=== PATIENT | male | born 1965 | race Hispanic/Latino ===

== ENCOUNTER 2019-12-01 15:39 | Inpatient (IN) | payer SELFPAY ==
[~2019-12-01 15:39] MED LIST: Iopamidol-370 76% 500 ML 1 ML ONE
[2019-12-01 16:10] LABS: Hemoglobin 12.5 g/dL (14.0-18.0); Mean Corpuscular HGB CONC 33.1 g/dL (32.0-36.0); Mean Corpuscular Hemoglobin 27.5 pg (27.0-31.0); Mean Corpuscular Volume 83.1 fL (78.0-98.0); Mean Platelet Volume 7.1 fL (7.4-10.4); Platelet Count 453 thou/uL (130-400); RBC Distribution Width 12.3 % (11.5-14.5); Red Blood Cell (RBC) Count 4.54 mill/uL (4.70-6.10); White Blood Cell (WBC) Count 24.3 thou/uL (4.8-10.8)
[2019-12-01] MEDS ORDERED: cefTRIAXone\\ROCEPHIN 2 GM VIAL ONE (16:10)
[2019-12-01 16:11] LABS: Base Excess-Venous -3.4 mmol/L (-2.0 to 3.0); CO2 Tension (PvCO2) 26.4 mmHg (40.0-50.0); Calcium, Ionized 1.22 mmol/L (See Comments:); Chloride 103 mmol/L (98-107); Hemoglobin - Calc 12.7 g/dL (14.0-18.0); Potassium 3.3 mmol/L (3.5-5.1); Sodium 136 mmol/L (138-145); T. Carbon Dioxide 19.8 mmol/L (22.0-28.0); vO2 Saturation-calc 89.4 % (60.0-85.0)
[2019-12-01 16:24] LABS: Band 22 % (5-11); Lymphocytes 2 % (21-51); MDiff Complete? YES; Metamyelocyte 1 % (0-0); Monocytes 1 % (0-10); Neutrophil 74 % (42-75); Ovalocytes SLIGHT = 2-5 cells (100X) (0-1/hpf); Platelet Morphology Comment Appears Increased; Polychromasia SLIGHT = 2-3 cells (100X) (0-2/hpf)
[2019-12-01 16:35] LABS: ALT (SGPT) 19 U/L (8-55); AST (SGOT) 23 U/L (5-34); Albumin 2.8 g/dL (3.5-5.0); Alkaline Phosphatase 98 U/L (40-110); Anion Gap 13 mmol/L (10-20); BUN (Urea Nitrogen) 14 mg/dL (8.4-25.7); Bilirubin, Total 0.9 mg/dL (0.2-1.2); Calc. Creatinine Clearance 0 mL/min (70-130); Carbon Dioxide 18 mmol/L (22-29); Chloride 105 mmol/L (98-107); Estimated GFR-MDRD Greater than 90; Globulin 3.2 g/dL (2.4-3.5); Glucose 139 mg/dL (70-105); Lipase 63 U/L (8-78); Potassium 3.3 mmol/L (3.5-5.1); Sodium 133 mmol/L (136-145)
[2019-12-01] MEDS ORDERED: Azithromycin 500 MG VIAL ONE (16:37)
[2019-12-01 16:40] LABS: Bilirubin Negative (Negative); Blood, Urine Negative (Negative); Clarity Turbid (Clear); Glucose, Urine (Dipstick) 70 mg/dL (Negative); Leukocyte Negative Leu/uL (Negative); Nitrite Negative (Negative); Protein, Urine (Dipstick) 100 mg/dL (Neg-Trace); RBC/HPF 0-3 HPF (0-3); Squamous Epithelial 0-3 HPF (0-3); Urobilinogen Normal mg/dL (Less than 2)
[2019-12-01 16:45] LABS: Bacteria/HPF None Seen HPF (None Seen); Renal Epithelial 0-3 HPF (None Seen); Transitional Epithelial 0-3 HPF (None Seen)
[2019-12-01 16:46] LABS: Mucous/LPF 3+ LPF (<2+)
--- NOTE | 2019-12-01 17:08 | RAD ---
Exam: Chest one view portable: HISTORY: Shortness of breath, diarrhea Fairly extensive confluent alveolar parenchymal change in the left midlung zone and left lower lobe. Additionally there is some confluent parenchymal changes in the right lower lobe and infrahilar region. Heart size is normal. IMPRESSION: Evidence for bilateral pneumonia.
[2019-12-01] MEDS ORDERED: Norepinephrine 8 MG/0.9% NS 250 ML ONE (17:32)
--- NOTE | 2019-12-01 17:50 | CT ---
CT arteriogram chest with IV contrast and 3-D imaging HISTORY: Chest pain. Dyspnea. FINDINGS: There is good contrast opacification pulmonary arteries and thoracic aorta with normal bran sandra of the great vessels at the aortic arch. Mild arterial calcification. Reactive appearing lymph nodes throughout the mediastinum. Dense consolidation and atelectasis occupies most of the left lower lobe, sparing the anterior and la teral basilar segments. Throughout the remainder of the upper lobes, prominent groundglass opacity is present with scattered small cysts. No focal mass is apparent. IMPRESSION: No CT evidence of pulmonary embolus. Dense atelectasis/infiltrate throughout most of the left lower lobe. Cause is not evident. There is also widespread groundglass opacity throughout the remainder of the lungs. Autoimmune versus infectious process. Please consider pulmonary medicine evaluation.
--- NOTE | 2019-12-01 18:21 | RAD ---
Chest one view HISTORY: Central line placement. COMPARISON: Earlier exam on the same date. FINDINGS: Distal end of the right subclavian central venous catheter is directed superiorly over the right internal jugular vein, with the tip at the level of C2. Dense bilateral airspace disease, pulmonary vascular congestion, and other findings of the chest are otherwise stable. IMPRESSION: Right subclavian central venous catheter directed into the right internal jugular vein.:
--- NOTE | 2019-12-01 19:02 | RAD ---
Chest one view HISTORY: Central line readjustment. COMPARISON: Earlier exam on the same date. FINDINGS: Tip of a right internal jugular central venous catheter now projects over the cavoatrial ju nction. Dense bilateral lung infiltrates, pulmonary vascular congestion, and other findings are stable.
[2019-12-01] MEDS ORDERED: Ibuprofen 200 MG TAB PO PRN (21:10)
[2019-12-01] MEDS ORDERED: Acetaminophen 325 MG TAB PO PRN (21:10)
[2019-12-01] MEDS ORDERED: Famotidine 20 MG TAB PO SCH (21:15)
[2019-12-01] MEDS: Sodium Chloride 0.9% 1,000 ML IV SCH (22:28)
[2019-12-02] MEDS ORDERED: Norepinephrine 8 MG/0.9% NS 250 ML IVPB PRN (00:16)
--- NOTE | 2019-12-02 00:28 | HP ---
PRIMARY CARE PHYSICIAN: The patient does not have a primary care physician. CHIEF COMPLAINT: Cough and shortness of breath. HISTORY OF PRESENT ILLNESS: Mr. Martines is a pleasant 54-year-old gentleman, who has no significant past medical history. He says that about a week ago on Tuesday, he started having symptoms of cough and congestion. The cough was productive of a yellowish sputum. He says it was very minimal, however, there was no blood. He also noted some shortness of breath as well. He also has had decreased appetite and he admits to losing about 15 pounds over the past 2 weeks. He denies having any night sweats, however. He denies any sick contacts. He has traveled to [place] about 6 months ago, but says he was not in contact with anybody who had any illnesses that he was aware of. He was evaluated in the ER and found to have bilateral infiltrates, as well as an elevated white blood cell count. He is noted to be febrile and an elevated heart rate, as well as hypotensive and is being admitted for pneumonia with sepsis. REVIEW OF SYSTEMS: All systems were reviewed and are negative except for that mentioned in the history of present illness. PAST MEDICAL HISTORY: Significant for shingles. PAST SURGICAL HISTORY: Negative. ALLERGIES: NO KNOWN DRUG ALLERGIES. SOCIAL HISTORY: He is a nonsmoker and nondrinker. He is , has no children. FAMILY HISTORY: Unknown. MEDICATIONS: No medicines prior to admission. PHYSICAL EXAMINATION: GENERAL: He is alert and oriented. He appears to be in no acute distress. VITAL SIGNS: Blood pressure was 109/70, heart rate 83, heart rate of 141, respiratory rate of 25, and temperature is 100.2. HEENT: Pupils are equal, round, and reactive. Extraocular muscles are intact. Sclerae anicteric. Throat, there is no erythema, no exudates. NECK: No adenopathy, no bruits. LUNGS: He has decreased breath sounds bilaterally, as well as rales throughout. CARDIOVASCULAR: He has a normal S1, S2. There is no S3 or S4. No murmurs, clicks, or rubs. ABDOMEN: Soft. It is nontender and nondistended. Positive for bowel sounds. There is no rebound, no guarding, no organomegaly. EXTREMITIES: There is no clubbing or cyanosis. No edema. No joint effusions. NEUROLOGIC: Grossly nonfocal. SKIN AND INTEGUMENT: No skin changes. No rash. LABORATORY RESULTS: White blood cell count is 24.3, hemoglobin 12.5, hematocrit is 37.7, and platelet count is 453. On the blood gas, pH was 7.465, sodium 136, potassium 3.3, chloride is 103, CO2 is 18, BUN 14, creatinine 0.81, glucose is 139. Urinalysis, he had some granular casts, 0-3 squamous cells. ASSESSMENT: This is a pleasant 54-year-old gentleman, who presents with cough and shortness of breath as well as elevated white blood cell count and radiographic evidence of pneumonia. He will be admitted to the ICU. Given the severe sepsis, started on antibiotics for community-acquired pneumonia. He will have a Pulmonary consultation. We will get fluid resuscitation, check an echo since some of the findings could be compatible with congestive heart failure as well, although less likely. Place him on deep venous thrombosis and gastrointestinal prophylaxis and supplemental oxygen. Further recommendations to follow. Job ID: [id number]
[2019-12-02 04:10] LABS: Anion Gap 11 mmol/L (10-20); BUN (Urea Nitrogen) 12 mg/dL (8.4-25.7); Calc. Creatinine Clearance 109 mL/min (70-130); Calcium 8.3 mg/dL (7.8-10.44); Carbon Dioxide 18 mmol/L (22-29); Chloride 114 mmol/L (98-107); Estimated GFR-MDRD Greater than 90; Glucose 97 mg/dL (70-105); Magnesium 2.1 mg/dL (1.6-2.6); Potassium 3.1 mmol/L (3.5-5.1); Sodium 140 mmol/L (136-145)
[2019-12-02 04:15] LABS: Band 13 % (5-11); Hemoglobin 11.3 g/dL (14.0-18.0); Lymphocytes 3 % (21-51); MDiff Complete? YES; Mean Corpuscular HGB CONC 33.2 g/dL (32.0-36.0); Mean Corpuscular Hemoglobin 27.9 pg (27.0-31.0); Mean Corpuscular Volume 84.1 fL (78.0-98.0); Mean Platelet Volume 7.3 fL (7.4-10.4); Monocytes 3 % (0-10); Neutrophil 81 % (42-75); Platelet Count 468 thou/uL (130-400); Platelet Morphology Comment Appears Increased; RBC Distribution Width 12.3 % (11.5-14.5); RBC Morphology Normal; Red Blood Cell (RBC) Count 4.06 mill/uL (4.70-6.10); White Blood Cell (WBC) Count 24.3 thou/uL (4.8-10.8)
[2019-12-02] MEDS: Sodium Chloride 0.9% 1,000 ML IV SCH ×3 (06:05→20:14)
[2019-12-02] MEDS ORDERED: FLU VACC QS2019-20(6MOS UP)/PF 60 MCG/0.5 ML SYRINGE IM ONE (09:00)
[2019-12-02] MEDS: Famotidine 20 MG TAB PO SCH ×2 (09:50→20:10)
[2019-12-02] MEDS: Enoxaparin Sodium 40 MG/0.4 ML SYRINGE SC SCH (09:50)
[2019-12-02] MEDS ORDERED: Potassium Chloride 20 MEQ TAB PO SCH (10:00)
--- NOTE | 2019-12-02 10:18 | PDOC.HOSPP ---
- Subjective Encounter Date: 12/02/19 Encounter Time: 10:16 Subjective: Mr. Martines as seen today in follow-up of pneumonia with sepsis, and respiratory failure. He does not have any new complaints. He is awake and alert. - Objective Vital Signs & Weight: Vital Signs (12 hours) Temp Pulse Ox 12/02/19 04:00 98.7 F 12/02/19 00:57 94 L 12/02/19 00:00 98.5 F Weight Weight 109 lb 9.6 oz Most Recent Monitor Data Heart Rate from ECG 98 NIBP 108/74 NIBP BP-Mean 85 Respiration from ECG 33 SpO2 100 I&O: 12/01/19 12/02/19 12/03/19 06:59 06:59 06:59 Intake Total 1091 Output Total 450 Balance 641 Result Diagrams: 12/02/19 03:25 12/02/19 03:25 Hospitalist ROS - Medication Medications: Active Medications Generic Name Dose Route Start Last Admin Trade Name Freq PRN Reason Stop Dose Admin Enoxaparin Sodium 40 mg 12/02/19 09:00 12/02/19 09:50 Lovenox SC 40 mg 0900 COURTNEY Administration Famotidine 20 mg 12/02/19 09:00 12/02/19 09:50 Pepcid PO 20 mg BID COURTNEY Administration Sodium Chloride 1,000 mls @ 125 mls/hr 12/01/19 21:10 12/02/19 06:05 Normal Saline 0.9% IV 1,000 mls .Q8H COURTNEY Administration Sodium Chloride 10 ml 12/01/19 21:00 12/02/19 09:50 Flush - Normal Saline IVF 10 ml Q12HR COURTNEY Administration - Exam Eye: PERRL Heart: RRR, no murmur, no gallops, no rubs, normal peripheral pulses Respiratory: rales (+ bi-basilar rales, no rhonchi) Gastrointestinal: soft, non-tender, non-distended, normal bowel sounds, no palpable masses, no hepatomegaly, no splenomegaly Extremities: no cyanosis, no clubbing, no edema Hosp A/P (1) Acute respiratory failure with hypoxia Code(s): J96.01 - ACUTE RESPIRATORY FAILURE WITH HYPOXIA Status: Acute (2) Pneumonia, bacterial Code(s): J15.9 - UNSPECIFIED BACTERIAL PNEUMONIA Status: Acute (3) Severe sepsis Code(s): A41.9 - SEPSIS, UNSPECIFIED ORGANISM; R65.20 - SEVERE SEPSIS WITHOUT SEPTIC SHOCK Status: Acute (4) Malnutrition of moderate degree Code(s): E44.0 - MODERATE PROTEIN-CALORIE MALNUTRITION Status: Chronic - Plan * Acute respiratory failure- with hypoxemia- continue IV Rocephin and Azithromycin * Vancomycin has been added ( urine culture has a staph species growing) * Sepsis- improving- but he continues to require pressor support from time to time * Malnutrition- nutritional support
--- NOTE | 2019-12-02 10:33 | CON ---
DATE OF CONSULTATION: 12/02/2019 REASON FOR CONSULTATION: Pneumonia. HISTORY OF PRESENT ILLNESS: This is a 54-year-old male, who presented to the hospital yesterday with cough and shortness of breath. He had lost a considerable amount of weight over the last 2 weeks. He traveled to [place] about 6 months ago. In the ER, he had a CT showing a dense almost masslike infiltrate in left lower lobe as well as scattered alveolar infiltrates bilaterally. PAST MEDICAL HISTORY: Essentially, unremarkable. PAST SURGICAL HISTORY: Negative. ALLERGIES: NONE. SOCIAL HISTORY: Denies tobacco abuse. Does not drink. FAMILY MEDICAL HISTORY: Unknown. MEDICATIONS: None prior to admission. REVIEW OF SYSTEMS: 12-point review of systems is otherwise negative except for the weight loss, cough, and congestion. PHYSICAL EXAMINATION: VITAL SIGNS: Temperature is 98.7, pulse 98, blood pressure 108/74, saturations 100% currently on Levophed drip at 2 mcg/minute. GENERAL: He appears ill and cachectic. HEENT: Bitemporal wasting present. Oropharynx clear. NECK: No adenopathy or JVD. LUNGS: Poor air movement bilaterally, especially in left lower lobe. CARDIOVASCULAR: S1 and S2. Regular. ABDOMEN: Soft, nontender to palpation. No hepatosplenomegaly. EXTREMITIES: No clubbing, cyanosis, or edema. LABORATORY DATA: Sodium 140, potassium 3.1, chloride 114, CO2 of 18, BUN 12, creatinine 0.5, and glucose 97. His BNP is 45. Albumin 2.8. White blood cell count 24.3, hematocrit 34.1, and platelet count 468. I reviewed his CT and his chest x-ray. He has almost masslike infiltrate in the left lower lobe. Urinalysis demonstrates Staphylococcus. Nasopharyngeal swab showed Rhinovirus. Flu test was negative. ASSESSMENT: 1. Dense left lower lobe infiltrate indicative of pneumonia. 2. Septic shock. 3. Severe protein-calorie malnutrition. PLAN: 1. Since he is already growing Staph out of the urine, I will add vancomycin. Agree with echocardiogram. 2. Check HIV. 3. Continue ceftriaxone and azithromycin as you are doing. 4. Wean high-flow oxygen as tolerated. 5. The patient is very juan antonio that he has not been intubated. His status is fragile. I would leave him in the ICU until further notice. We will be happy to follow with you. Job ID: [id number]
[2019-12-02] MEDS: Vancomycin HCl 1 GM in Premix Bag 1 BAG IVPB SCH ×2 (12:13→22:13)
[2019-12-02 13:06] LABS: HIV (1/2) Antibody/Antigen Reflxed Confirmation (NonReactive)
[2019-12-02 13:08] LABS: HIV 1/2 INDEX 286.49 S/CO (<1.00)
[2019-12-02] MEDS: cefTRIAXone\\ROCEPHIN 2 GM in Sodium Chloride 0.9% 100 ML IVPB SCH (15:59)
[2019-12-02] MEDS: Azithromycin 500 MG in Sodium Chloride 0.9% 250 ML 250 ML IVPB SCH (15:59)
[2019-12-03 04:42] LABS: #Basophils 0.1 thou/uL (0.0-0.2); #Eosinphils 0.6 thou/uL (0.0-0.7); #Lymphocytes 0.7 thou/uL (1.20-3.40); #Monocytes 0.2 thou/uL (0.11-0.59); #Neutrophils 14.3 thou/uL (1.40-6.50); %Basophils 0.8 % (0.0-1.0); %Eosinophils 3.5 % (0.0-10.0); %Lymphocytes 4.2 % (21.0-51.0); %Monocytes 1.5 % (0.0-10.0); %Neutrophils 90.1 % (42.0-75.0); Hemoglobin 10.7 g/dL (14.0-18.0); Mean Corpuscular HGB CONC 32.7 g/dL (32.0-36.0); Mean Corpuscular Hemoglobin 27.6 pg (27.0-31.0); Mean Corpuscular Volume 84.3 fL (78.0-98.0); Mean Platelet Volume 7.3 fL (7.4-10.4); Platelet Count 405 thou/uL (130-400); RBC Distribution Width 12.2 % (11.5-14.5); Red Blood Cell (RBC) Count 3.88 mill/uL (4.70-6.10); White Blood Cell (WBC) Count 15.8 thou/uL (4.8-10.8)
[2019-12-03 05:03] LABS: Anion Gap 11 mmol/L (10-20); BUN (Urea Nitrogen) 6 mg/dL (8.4-25.7); Calc. Creatinine Clearance 125 mL/min (70-130); Calcium 7.9 mg/dL (7.8-10.44); Carbon Dioxide 21 mmol/L (22-29); Chloride 108 mmol/L (98-107); Estimated GFR-MDRD Greater than 90; Glucose 82 mg/dL (70-105); Sodium 137 mmol/L (136-145)
--- NOTE | 2019-12-03 09:01 | PRG ---
DATE OF SERVICE: 12/03/2019 SUBJECTIVE: He remains on high-flow oxygen. He is tachypneic at rest. He says he feels a little better. OBJECTIVE: VITAL SIGNS: His temperature is 98.9, pulse 107, blood pressure 126/73, and O2 saturation 98%. A 24-hour intake 3499 and output 1595. HEENT: Remarkable for bitemporal wasting. NECK: No JVD. LUNGS: Coarse rhonchi bilaterally. CARDIOVASCULAR: S1 and S2, tachycardic. ABDOMEN: Soft and nontender. EXTREMITIES: No edema. LABORATORY DATA: White blood cell count is down to 15.8, hematocrit 32.7, and platelet count 405. Sodium 137, potassium 3, chloride 108, CO2 of 21, BUN 6, creatinine 0.5, and glucose 82. His HIV test was positive. His x-ray shows bilateral infiltrates, left greater than right. ASSESSMENT: Human immunodeficiency virus infection with pneumonia. Right now, we do not know how immunocompromised he is as we are still pending CD4 count and viral load. PLAN: I talked to him through an benefit director. The patient seems to have a very poor understanding of his illness. He does not endorse that he knew of his HIV before this hospitalization. We have asked Dr. Pan to help us out. It would appear right now he is responding to the current antibiotics, but we may want to add empiric therapy for Pneumocystis if Dr. Pan agrees. The patient needs to remain in critical care. We will follow. Job ID: [id number]
[2019-12-03] MEDS: Sodium Chloride 0.9% 1,000 ML IV SCH ×3 (09:27→23:23)
[2019-12-03] MEDS: Famotidine 20 MG TAB PO SCH ×2 (09:29→21:32)
[2019-12-03] MEDS: Enoxaparin Sodium 40 MG/0.4 ML SYRINGE SC SCH (09:29)
--- NOTE | 2019-12-03 09:57 | RAD ---
CHEST 1 VIEW PORTABLE: Date: 12/03/2019 HISTORY: Follow-up pneumonia. COMPARISON: 12/01/2019. FINDINGS: There appears to be progressive more diffuse alveolar and interstitial opacity changes, now throughou t both lungs. There is continued more confluent process in the left mid lung zone. IMPRESSION: Progressive alveolar and interstitial opacity changes now extending throughout almost the entirety of both lungs. POS: TPC
[2019-12-03] MEDS: Vancomycin HCl 1 GM in Premix Bag 1 BAG IVPB SCH ×2 (11:16→23:22)
--- NOTE | 2019-12-03 12:55 | PDOC.HOSPP ---
- Subjective Encounter Date: 12/03/19 Encounter Time: 12:54 Subjective: Mr. Martines was seen today in follow-up of pneumonia. He says he is breathing ok. He appears fatigued. - Objective Vital Signs & Weight: Vital Signs (12 hours) Temp Pulse Ox 12/03/19 12:00 99.4 F 12/03/19 10:30 100 12/03/19 08:00 99.8 F H 100 12/03/19 03:00 98.9 F 12/03/19 02:07 98 Weight Weight 119 lb 4.321 oz Most Recent Monitor Data Heart Rate from ECG 116 NIBP 131/81 NIBP BP-Mean 97 Respiration from ECG 49 SpO2 98 I&O: 12/02/19 12/03/19 12/04/19 06:59 06:59 06:59 Intake Total 1091 3499 Output Total 450 1595 450 Balance 641 1904 -450 Result Diagrams: 12/03/19 04:15 12/03/19 04:15 Hospitalist ROS - Medication Medications: Active Medications Generic Name Dose Route Start Last Admin Trade Name Juanq PRN Reason Stop Dose Admin Enoxaparin Sodium 40 mg 12/02/19 09:00 12/03/19 09:29 Lovenox SC 40 mg 0900 COURTNEY Administration Famotidine 20 mg 12/02/19 09:00 12/03/19 09:29 Pepcid PO 20 mg BID COURTNEY Administration Azithromycin 500 mg/ Sodium 250 mls @ 250 mls/hr 12/02/19 17:00 12/02/19 15: 59 Chloride IVPB 250 mls Q24HR COURTNEY Administration Ceftriaxone Sodium 2 gm/ 100 mls @ 200 mls/hr 12/02/19 16:00 12/02/19 15:59 Sodium Chloride IVPB 100 mls Q24HR COURTNEY Administration Vancomycin HCl 1 gm/ Device 200 mls @ 200 mls/hr 12/02/19 11:00 12/03/19 11: 16 IVPB 200 mls 1100,2300 COURTNEY Administration Sodium Chloride 1,000 mls @ 70 mls/hr 12/03/19 08:01 12/03/19 09:27 Normal Saline 0.9% IV 1,000 mls .[id number] COURTNEY Administration Sodium Chloride 10 ml 12/01/19 21:00 12/03/19 09:30 Flush - Normal Saline IVF 10 ml Q12HR COURTNEY Administration - Exam Eye: PERRL, anicteric sclera ENT: normocephalic atraumatic Heart: RRR, no murmur, no gallops, no rubs, normal peripheral pulses Respiratory: CTAB, no ronchi, normal chest expansion (+ rales in both bases), rales Gastrointestinal: soft, non-tender, non-distended, normal bowel sounds, no palpable masses, no hepatomegaly Extremities: no cyanosis, no clubbing, no edema Hosp A/P (1) Acute respiratory failure with hypoxia Code(s): J96.01 - ACUTE RESPIRATORY FAILURE WITH HYPOXIA Status: Acute (2) Pneumonia, bacterial Code(s): J15.9 - UNSPECIFIED BACTERIAL PNEUMONIA Status: Acute (3) Severe sepsis Code(s): A41.9 - SEPSIS, UNSPECIFIED ORGANISM; R65.20 - SEVERE SEPSIS WITHOUT SEPTIC SHOCK Status: Acute (4) Malnutrition of moderate degree Code(s): E44.0 - MODERATE PROTEIN-CALORIE MALNUTRITION Status: Chronic (5) HIV antibody positive Code(s): Z21 - ASYMPTOMATIC HUMAN IMMUNODEFICIENCY VIRUS INFECTION STATUS Status: Chronic (6) AIDS Status: Chronic - Plan * Acute respiratory failure- with hypoxemia- HIV results noted. Discussed with Dr. Pan. He has treated the patient a few years ago, and he unfortunately was lost to follow-up. He will need coverage for PCP , and will await results of CD4 count and viral load * Vancomycin has been added ( urine culture has a staph species growing) * Sepsis- improved. He is now off Levophed- * Malnutrition- nutritional support * Further recommendations from ID and PCCM
[2019-12-03 14:40] LABS: Ref Lab Test Ordered PNEUMOCYSTIS PCR; Reference Lab Name LABCORP
[2019-12-03] MEDS: SODIUM CHLORIDE 0.9% IVPB SCH (15:33)
[2019-12-03] MEDS: cefTRIAXone\\ROCEPHIN 2 GM in Sodium Chloride 0.9% 100 ML IVPB SCH (15:33)
[2019-12-03] MEDS: ACYCLOVIR SODIUM IVPB SCH (15:33)
--- NOTE | 2019-12-03 16:52 | CON ---
DATE OF CONSULTATION: 12/03/2019 REASON FOR CONSULTATION: Pneumonia and HIV seropositive status. HISTORY OF PRESENT ILLNESS: A 54-year-old patient, who has a longstanding history of HIV seropositive status. His sonny CD4 was 122 in 2013. The patient, who has been on two different types of anti-retroviral therapy with poor adherence or somewhat erratic adherence. The lowest viral load that he achieved was 450 in 2016, and the latest CD4 cell count was 176 in 2016 with a viral load of 15,000. Since then, I have not seen the patient in the clinic. Apparently, he left the state and now he is back and had been losing weight for the past 3 months and then a week ago, developed respiratory symptoms that have progressed and he was admitted with severe community-acquired pneumonia and is currently in the ICU with high-flow oxygen administration. The patient has developed hearing impairment, which seems to be a new finding over the past year or so. No headaches. No visual symptoms. No sore throat, odynophagia, or dysphagia. No chest pain. No back pain. No abdominal pain or diarrhea. No genitourinary symptoms. No neurological symptoms. PAST MEDICAL HISTORY: HIV seropositive status since at least 2013 on two different anti-retroviral regimens with erratic adherence to treatment, lowest CD4 of 122, highest 176 and viral load the lowest was 400 and the highest 15,000. He has a history of herpes zoster. PAST SURGICAL HISTORY: No surgical history. ALLERGIES: NONE. SOCIAL HISTORY: Never smoker. He is not working at the moment, had not been working. FAMILY HISTORY: Not available at this time. CURRENT MEDICATIONS: 1. Azithromycin. 2. Ceftriaxone. 3. Famotidine. 4. Ibuprofen. 5. Norepinephrine. 6. Vancomycin. PHYSICAL EXAMINATION: VITAL SIGNS: T-max 99.8, blood pressure 130/80, pulse 96, respirations 49, and O2 saturation 93 to 98. SKIN: With the areas of hyperpigmentation, which appear to be residual of prior prurigo. There is an area of ulceration in the intergluteal region. The ulcer is somewhat irregular measuring about 3 x 2 cm, kind of flattened and shallow ulceration. Peripheral IV access. He is voiding in the urinal. No lymphadenopathy. HEENT: Some element of temporal wasting. Ocular movements conjugate. Sclerae white. Pupils are equal. Oral cavity with no evidence of oral candidiasis. Numerous missing teeth. Remainder ones with quite a bit of decay and gum disease. Ear examination with normal tympanic membranes. Nasal passages are patent. NECK: Supple. No jugular vein distention. LUNGS: With coarse scattered breath sounds with coarse crackles as well as fine inspiratory crackles distributed diffusely both right and left hemithorax, more prominent on the left side. HEART: S1 and S2. Regular rate. No S3 or S4. ABDOMEN: Soft, not distended or tender. No ascites. No bladder distention. No organomegaly. EXTREMITIES: No joint inflammatory activity. Moves extremities equally. Pulses 1+ in dorsalis pedis. No edema. NEUROLOGIC: Awake, alert, oriented, and follows commands. LABORATORY STUDIES: White cell count 24,000 down to 15.8 at this time, hemoglobin 12.5, platelets 453, and 22% bands. A pH of 7.46, pCO2 of 26, and pO2 of 52. Sodium 140 and creatinine 0.54. Liver profile normal. Albumin 2.8 and globulin 3.2. Urinalysis 7 to 10 wbc's. They did a serology, but obviously is positive for HIV. Thus far, blood cultures negative x2. Urine culture with Staph aureus. Influenza A and B negative. Respiratory virus panel with rhinovirus. Echocardiogram, EF 60% to 65%. Valves appeared normal. Pericardium normal. CT angio good opacification of pulmonary vessels, dense atelectasis and consolidation left lower lobe, ground-glass opacity in the remainder aspect, scattered small cysts. ASSESSMENT: 1. Longstanding human immunodeficiency virus infection with erratic adherence to anti-retroviral therapy, his lower CD4 of 122 and highest 176. Stopped coming to the clinic in 2017 and has not been seen since and now presents with diffuse pneumonia. One component is more of a lobar type pneumonia with alveolar consolidation. The other component is more ground-glass. 2. Severe hypoxemia. 3. Hearing impairment, which is a new finding compared with 2017. 4. 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 An additional opportunistic process is possible as discussed below. DISCUSSION: The differential diagnosis includes community-acquired pneumonia secondary to the usual pathogens plus-minus Staphylococcus aureus as well as the likely presence of Pneumocystis jiroveci infection. So, he must have 2 different processes going on the lung at same time. Additional opportunistic processes are possible and he needs to be checked for syphilis, histoplasma antigen, cryptococcus antigen, may need a spinal tap in view of the hearing deficit to rule out chronic meningitis, CMV, DNA, and PCR. Add Bactrim to current regimen, corticosteroids if not yet started, and anti-retroviral therapy with Isentress and Truvada or etravirine, Isentress, and lamivudine. Prognosis is guarded. He has a high risk of requiring intubation, mechanical ventilation. We will need also treatment with acyclovir intravenous for the herpetic ulcer in the perineal area. Job ID: [id number] [facility]
[2019-12-03] MEDS: TRIMETHOPRIM IVPB SCH (17:34)
[2019-12-03] MEDS: DEXTROSE 5% IVPB SCH (17:34)
[2019-12-03] MEDS: Azithromycin 500 MG in Sodium Chloride 0.9% 250 ML 250 ML IVPB SCH (17:34)
[2019-12-03] MEDS: SULFAMETHOXAZOLE IVPB SCH (17:34)
[2019-12-03] MEDS: WATER IVPB SCH (17:34)
[2019-12-03] MEDS: methylPREDNISolone Sod Succ 40 MG VIAL IVP SCH (21:32)
[2019-12-03 22:40] LABS: Vancomycin, Trough 5.3 ug/mL
[2019-12-03] MEDS: Lopinavir/Ritonavir 200-50mg TAB PO SCH (22:45)
[2019-12-04] MEDS: SODIUM CHLORIDE 0.9% IVPB SCH ×3 (00:35→16:32)
[2019-12-04] MEDS: ACYCLOVIR SODIUM IVPB SCH ×3 (00:35→16:32)
[2019-12-04] MEDS: WATER IVPB SCH ×5 (01:55→23:29)
[2019-12-04] MEDS: TRIMETHOPRIM IVPB SCH ×5 (01:55→23:29)
[2019-12-04] MEDS: SULFAMETHOXAZOLE IVPB SCH ×5 (01:55→23:29)
[2019-12-04] MEDS: DEXTROSE 5% IVPB SCH ×5 (01:55→23:29)
[2019-12-04 03:34] LABS: #Basophils 0.1 thou/uL (0.0-0.2); #Lymphocytes 0.3 thou/uL (1.20-3.40); #Monocytes 0.1 thou/uL (0.11-0.59); #Neutrophils 8.1 thou/uL (1.40-6.50); %Basophils 1.6 % (0.0-1.0); %Eosinophils 0.1 % (0.0-10.0); %Lymphocytes 3.8 % (21.0-51.0); %Monocytes 0.8 % (0.0-10.0); %Neutrophils 93.7 % (42.0-75.0); Hemoglobin 11.2 g/dL (14.0-18.0); Mean Corpuscular HGB CONC 33.1 g/dL (32.0-36.0); Mean Corpuscular Hemoglobin 27.8 pg (27.0-31.0); Mean Corpuscular Volume 84.1 fL (78.0-98.0); Mean Platelet Volume 7.4 fL (7.4-10.4); Platelet Count 376 thou/uL (130-400); RBC Distribution Width 12.4 % (11.5-14.5); Red Blood Cell (RBC) Count 4.04 mill/uL (4.70-6.10); White Blood Cell (WBC) Count 8.7 thou/uL (4.8-10.8)
[2019-12-04 03:55] LABS: Anion Gap 11 mmol/L (10-20); BUN (Urea Nitrogen) 4 mg/dL (8.4-25.7); Calc. Creatinine Clearance 121 mL/min (70-130); Carbon Dioxide 25 mmol/L (22-29); Chloride 103 mmol/L (98-107); Estimated GFR-MDRD Greater than 90; Glucose 278 mg/dL (70-105); Potassium 3.2 mmol/L (3.5-5.1); Sodium 136 mmol/L (136-145)
[2019-12-04] MEDS ORDERED: Potassium Chloride 20 MEQ TAB PO SCH (08:00)
--- NOTE | 2019-12-04 08:39 | PDOC.HOSPP ---
- Subjective Encounter Date: 12/04/19 Encounter Time: 08:37 Subjective: Mr. Martines was seen today in follow-up of HIV and pneumonia. He says he is doing a little better today. No new complaints. - Objective Vital Signs & Weight: Vital Signs (12 hours) Temp Pulse Ox 12/04/19 07:23 95 12/04/19 04:00 98.6 F 12/04/19 02:33 96 12/03/19 23:00 99.3 F 12/03/19 22:45 95 Weight Admit Weight 119 lb Weight 118 lb 2.684 oz Most Recent Monitor Data Heart Rate from ECG 88 NIBP 116/80 NIBP BP-Mean 92 Respiration from ECG 41 SpO2 97 I&O: 12/03/19 12/04/19 12/05/19 06:59 06:59 06:59 Intake Total 3499 2399 Output Total 1595 3125 Balance 1813 -510 Result Diagrams: 12/04/19 03:10 12/04/19 03:10 Hospitalist ROS - Medication Medications: Active Medications Generic Name Dose Route Start Last Admin Trade Name Freq PRN Reason Stop Dose Admin Acetaminophen 650 mg 12/01/19 21:10 12/03/19 19:40 Tylenol PO 650 mg Q4H PRN Administration Headache/Fever/Mild Pain (1-3) Enoxaparin Sodium 40 mg 12/02/19 09:00 12/03/19 09:29 Lovenox SC 40 mg 0900 COURTNEY Administration Etravirine 200 mg 12/03/19 18:00 12/03/19 17:34 Intelence PO 200 mg BID-PC COURTNEY Administration Famotidine 20 mg 12/02/19 09:00 12/03/19 21:32 Pepcid PO 20 mg BID COURTNEY Administration Azithromycin 500 mg/ Sodium 250 mls @ 250 mls/hr 12/02/19 17:00 12/03/19 17: 34 Chloride IVPB 250 mls Q24HR COURTNEY Administration Ceftriaxone Sodium 2 gm/ 100 mls @ 200 mls/hr 12/02/19 16:00 12/03/19 15:33 Sodium Chloride IVPB 100 mls Q24HR COURTNEY Administration Vancomycin HCl 1 gm/ Device 200 mls @ 200 mls/hr 12/02/19 11:00 12/03/19 23: 22 IVPB 200 mls 1100,2300 COURTNEY Administration Sodium Chloride 1,000 mls @ 70 mls/hr 12/03/19 08:01 12/03/19 23:23 Normal Saline 0.9% IV 1,000 mls .[id number] COURTNEY Administration Acyclovir Sodium 300 mg/ 106 mls @ 100 mls/hr 12/03/19 16:00 12/04/19 00:35 Sodium Chloride IVPB 106 mls 0800,1600,2359 COURTNEY Administration Trimethoprim/Sulfamethoxazole 500 mls @ 250 mls/hr 12/03/19 18:00 12/04/19 01 :55 180 mg/ Dextrose/Water IVPB 500 mls Q6HR COURTNEY Administration Lamivudine 150 mg 12/03/19 21:00 12/03/19 22:44 Epivir PO 150 mg BID COURTNEY Administration Lopinavir/Ritonavir 1 tab 12/03/19 21:00 12/03/19 22:45 Kaletra PO 1 tab BID COURTNEY Administration Methylprednisolone Sodium Succinate 40 mg 12/03/19 21:00 12/03/19 21:32 Solu-Medrol IVP 40 mg Q12HR COURTNEY Administration Sodium Chloride 10 ml 12/01/19 21:00 12/03/19 22:47 Flush - Normal Saline IVF 10 ml Q12HR COURTNEY Administration - Exam Eye: PERRL Heart: RRR, no murmur, no gallops, no rubs, normal peripheral pulses Respiratory: rales (+ bi-basilar rales, and coarse breath sounds bilaterally) Gastrointestinal: soft, non-tender, non-distended, normal bowel sounds, no palpable masses, no hepatomegaly, no splenomegaly Extremities: no cyanosis, no clubbing, no edema Musculoskeletal: generalized weakness Hosp A/P (1) Acute respiratory failure with hypoxia Code(s): J96.01 - ACUTE RESPIRATORY FAILURE WITH HYPOXIA Status: Acute (2) Pneumonia, bacterial Code(s): J15.9 - UNSPECIFIED BACTERIAL PNEUMONIA Status: Acute (3) Severe sepsis Code(s): A41.9 - SEPSIS, UNSPECIFIED ORGANISM; R65.20 - SEVERE SEPSIS WITHOUT SEPTIC SHOCK Status: Acute (4) Malnutrition of moderate degree Code(s): E44.0 - MODERATE PROTEIN-CALORIE MALNUTRITION Status: Chronic (5) HIV antibody positive Code(s): Z21 - ASYMPTOMATIC HUMAN IMMUNODEFICIENCY VIRUS INFECTION STATUS Status: Chronic (6) AIDS Status: Chronic - Plan * Acute respiratory failure- with hypoxemia- Continue Rocephin, Vancomycin< Azithromycin and Bactrim has been added for Pneumocystis coverage * IV Steroids have also been added * He continues to require high flow oxygen * Sepsis- improved * HIV- CD4 counts and viral load is pending, and studies for CMV, Histoplasmosis , and cryptococcus hve been sent. He has been start on HAART * Malnutrition- nutritional support * Need to begin mobilization- will consult PT
[2019-12-04] MEDS: methylPREDNISolone Sod Succ 40 MG VIAL IVP SCH ×2 (08:45→20:48)
[2019-12-04] MEDS: Famotidine 20 MG TAB PO SCH ×2 (08:46→20:45)
[2019-12-04] MEDS: Enoxaparin Sodium 40 MG/0.4 ML SYRINGE SC SCH (08:46)
[2019-12-04] MEDS: Lopinavir/Ritonavir 200-50mg TAB PO SCH ×2 (08:48→20:51)
--- NOTE | 2019-12-04 08:55 | PRG ---
DATE OF SERVICE: 12/04/2019 SUBJECTIVE: Mr. Martines seems to be doing better today. He remains on a high-flow oxygen. It was confirmed that he has had HIV for many years. He was previously under the care of Dr. Pan. He has been started on Pneumocystis therapy along with steroids. OBJECTIVE: VITAL SIGNS: His temperature is 98.6, pulse 88, blood pressure 116/80, O2 saturation 97%. A 24-hour intake 2399, output 3125. HEENT: Shows wasting. Oropharynx did not show any thrush this morning. LUNGS: Clear. CARDIAC: S1 and S2, regular. ABDOMEN: Soft. EXTREMITIES: Muscle wasting. LABORATORY DATA: Sodium 136, potassium 3.2, BUN 4, creatinine 0.5, glucose 278. White blood cell count 8.7, hematocrit 34, and platelet count 376. His x-ray does show some minimal improvement compared to yesterday's film. ASSESSMENT: 1. Pneumonia. 2. Acute hypoxic respiratory failure. 3. Acquired immunodeficiency syndrome. PLAN: He will continue on the ceftriaxone, vancomycin, Bactrim, azithromycin, and acyclovir. We will try to wean his high-flow oxygen. If he can tolerate that, then he will be a candidate for transfer out of the ICU tomorrow. Job ID: [id number]
--- NOTE | 2019-12-04 09:40 | RAD ---
PORTABLE CHEST: Date: 12/04/2019 HISTORY: Pneumonia. CCU follow-up. COMPARISON: 12/03/2019. FINDINGS: Diffuse bilateral infiltrates again noted, slightly more dense in the left mid lung field. There over all appears to be mild improvement when compared to yesterday. The central line has been removed. IMPRESSION: Diffuse bilateral infiltrates again noted, although there appears to be some improvement in the infil trates when compared to yesterday's chest film. POS: EMMY
[2019-12-04] MEDS: Vancomycin 1.5 GRAM/300 ML BAG 1.5 GM in Premix Bag 1 BAG IVPB SCH ×2 (11:19→22:29)
[2019-12-04] MEDS ORDERED: VANCOMYCIN IVPB PRN (13:19)
[2019-12-04] MEDS: Sodium Chloride 0.9% 1,000 ML IV SCH (16:32)
[2019-12-04] MEDS: Azithromycin 500 MG in Sodium Chloride 0.9% 250 ML 250 ML IVPB SCH (17:08)
[2019-12-04 17:12] LABS: %CD4 (Helper/Inducer) 0.3 % (30.8-58.5); Absolute CD4 2 /uL (359-1519); Lymphocytes/Gated Cell Count 0.8 x10E3/uL (0.7-3.1); Total Lymphocyte 4 % (Not Estab.); WBC Total Count 20.1 x10E3/uL (3.4-10.8)
[2019-12-04] MEDS: cefTRIAXone\\ROCEPHIN 2 GM in Sodium Chloride 0.9% 100 ML IVPB SCH (17:35)
[2019-12-05] MEDS: SODIUM CHLORIDE 0.9% IVPB SCH ×4 (00:09→23:59)
[2019-12-05] MEDS: ACYCLOVIR SODIUM IVPB SCH ×4 (00:09→23:59)
[2019-12-05 03:46] LABS: #Lymphocytes 0.5 thou/uL (1.20-3.40); #Monocytes 0.2 thou/uL (0.11-0.59); #Neutrophils 7.1 thou/uL (1.40-6.50); %Lymphocytes 6.3 % (21.0-51.0); %Monocytes 2.9 % (0.0-10.0); %Neutrophils 90.8 % (42.0-75.0); Hemoglobin 10.3 g/dL (14.0-18.0); Mean Corpuscular Hemoglobin 27.6 pg (27.0-31.0); Mean Corpuscular Volume 83.7 fL (78.0-98.0); Mean Platelet Volume 7.6 fL (7.4-10.4); Platelet Count 413 thou/uL (130-400); RBC Distribution Width 12.4 % (11.5-14.5); Red Blood Cell (RBC) Count 3.72 mill/uL (4.70-6.10); White Blood Cell (WBC) Count 7.8 thou/uL (4.8-10.8)
[2019-12-05 04:08] LABS: Anion Gap 10 mmol/L (10-20); BUN (Urea Nitrogen) 8 mg/dL (8.4-25.7); Calc. Creatinine Clearance 119 mL/min (70-130); Calcium 7.7 mg/dL (7.8-10.44); Carbon Dioxide 25 mmol/L (22-29); Chloride 105 mmol/L (98-107); Estimated GFR-MDRD Greater than 90; Glucose 185 mg/dL (70-105); Potassium 3.4 mmol/L (3.5-5.1); Sodium 137 mmol/L (136-145)
[2019-12-05] MEDS: Sodium Chloride 0.9% 1,000 ML IV SCH (06:11)
[2019-12-05] MEDS: TRIMETHOPRIM IVPB SCH ×4 (06:39→23:58)
[2019-12-05] MEDS: DEXTROSE 5% IVPB SCH ×4 (06:39→23:58)
[2019-12-05] MEDS: WATER IVPB SCH ×4 (06:39→23:58)
[2019-12-05] MEDS: SULFAMETHOXAZOLE IVPB SCH ×4 (06:39→23:58)
--- NOTE | 2019-12-05 07:40 | PDOC.HOSPP ---
- Subjective Encounter Date: 12/05/19 Encounter Time: 07:36 Subjective: sob, on high flow O2 - Objective Vital Signs & Weight: Vital Signs (12 hours) Temp Pulse Ox 12/05/19 06:20 96 12/05/19 04:00 97.7 F 12/05/19 01:50 96 12/05/19 00:00 98.8 F 12/04/19 23:09 93 L 12/04/19 19:46 96 Weight Admit Weight 119 lb Weight 114 lb 10.246 oz Most Recent Monitor Data Heart Rate from ECG 97 NIBP 109/59 NIBP BP-Mean 75 Respiration from ECG 43 SpO2 96 I&O: 12/04/19 12/05/19 12/06/19 06:59 06:59 06:59 Intake Total 5199 5796 Output Total 5467 3609 Balance -726 2435 Result Diagrams: 12/05/19 03:17 12/05/19 03:17 Radiology Reviewed by me: Yes (cxr-adverse bilat infiltrates) Hospitalist ROS - Medication Medications: Active Medications Generic Name Dose Route Start Last Admin Trade Name Freq PRN Reason Stop Dose Admin Acetaminophen 650 mg 12/01/19 21:10 12/03/19 19:40 Tylenol PO 650 mg Q4H PRN Administration Headache/Fever/Mild Pain (1-3) Enoxaparin Sodium 40 mg 12/02/19 09:00 12/04/19 08:46 Lovenox SC 40 mg 0900 COURTNEY Administration Etravirine 200 mg 12/03/19 18:00 12/04/19 20:45 Intelence PO 200 mg BID-PC COURTNEY Administration Famotidine 20 mg 12/02/19 09:00 12/04/19 20:45 Pepcid PO 20 mg BID COURTNEY Administration Azithromycin 500 mg/ Sodium 250 mls @ 250 mls/hr 12/02/19 17:00 12/04/19 17: 08 Chloride IVPB 250 mls Q24HR COURTNEY Administration Ceftriaxone Sodium 2 gm/ 100 mls @ 200 mls/hr 12/02/19 16:00 12/04/19 17:35 Sodium Chloride IVPB 100 mls Q24HR COURTNEY Administration Sodium Chloride 1,000 mls @ 70 mls/hr 12/03/19 08:01 12/05/19 06:11 Normal Saline 0.9% IV 1,000 mls .[id number] COURTNEY Administration Acyclovir Sodium 300 mg/ 106 mls @ 100 mls/hr 12/03/19 16:00 12/05/19 00:09 Sodium Chloride IVPB 106 mls 0800,1600,2359 COURTNEY Administration Trimethoprim/Sulfamethoxazole 500 mls @ 250 mls/hr 12/03/19 18:00 12/05/19 06 :39 180 mg/ Dextrose/Water IVPB 500 mls Q6HR COURTNEY Administration Vancomycin HCl 1.5 gm/ Device 300 mls @ 200 mls/hr 12/04/19 11:00 12/04/19 22 :29 IVPB 300 mls 1100,2300 COURTNEY Administration Lamivudine 150 mg 12/03/19 21:00 12/04/19 20:46 Epivir PO 150 mg BID COURTNEY Administration Lopinavir/Ritonavir 1 tab 12/03/19 21:00 12/04/19 20:51 Kaletra PO 1 tab BID COURTNEY Administration Methylprednisolone Sodium Succinate 40 mg 12/03/19 21:00 12/04/19 20:48 Solu-Medrol IVP 40 mg Q12HR COURTNEY Administration Sodium Chloride 10 ml 12/01/19 21:00 12/04/19 20:47 Flush - Normal Saline IVF 10 ml Q12HR COURTNEY Administration - Exam General Appearance: ill appearing Neck: no JVD Heart: RRR, no murmur Respiratory - other findings: coarse BS with wheezes, rales post Gastrointestinal: soft, non-tender, normal bowel sounds Extremities: no edema Hosp A/P (1) Acute respiratory failure with hypoxia Code(s): J96.01 - ACUTE RESPIRATORY FAILURE WITH HYPOXIA Status: Acute (2) Pneumonia, bacterial Code(s): J15.9 - UNSPECIFIED BACTERIAL PNEUMONIA Status: Acute (3) Severe sepsis Code(s): A41.9 - SEPSIS, UNSPECIFIED ORGANISM; R65.20 - SEVERE SEPSIS WITHOUT SEPTIC SHOCK Status: Acute (4) AIDS Status: Chronic (5) Malnutrition of moderate degree Code(s): E44.0 - MODERATE PROTEIN-CALORIE MALNUTRITION Status: Chronic - Plan cont resp support cont anti-bacterial meds, multiple cont anti-viral meds, CD4 count very low nutrition cxr -adverse, prognosis guarded discuss with ID, correctional supply supervisor
--- NOTE | 2019-12-05 07:58 | RAD ---
XR Chest 1 View Portable History: Pneumonia Comparison: Radiograph prior day Findings: Worsening multifocal airspace opacities throughout the lungs. No pneumothorax. Trace effusi ons. Impression: Findings of worsening multifocal pneumonia.
--- NOTE | 2019-12-05 08:16 | PRG ---
DATE OF SERVICE: 12/05/2019 TIME SPENT: 35 minutes of critical care time. SUBJECTIVE: The patient remains in the intensive care unit on high-flow oxygen. There have been no acute changes overnight. OBJECTIVE: VITAL SIGNS: On exam, temperature 97.7, pulse 97, blood pressure 109/59, and O2 saturation 96%. He is on high-flow oxygen at about 60%. His intake has been 5734, output 3169. HEENT: Unremarkable. NECK: No adenopathy or JVD. LUNGS: Coarse breath sounds. CARDIAC: S1 and S2. Slightly tachycardic. ABDOMEN: Soft and nontender. EXTREMITIES: Severe muscle wasting. LABORATORY DATA: His CD4 count was 2. White blood cell count 7.8, hematocrit 31.1, and platelet count 413. Sodium 137, potassium 3.4, chloride 105, CO2 of 25, BUN 8, creatinine 0.5, and glucose 185. ASSESSMENT: 1. Acquired immunodeficiency syndrome. 2. Bilateral pneumonia. 3. Acute hypoxic respiratory failure. PLAN: 1. Continue steroids, Bactrim, and broad-spectrum IV antibiotics. 2. Stop IV fluids. 3. Transfer to Intermediate Care Unit if bed available, but continue high-flow oxygen. Job ID: [id number]
[2019-12-05] MEDS: Lopinavir/Ritonavir 200-50mg TAB PO SCH ×2 (08:33→20:29)
[2019-12-05] MEDS: Enoxaparin Sodium 40 MG/0.4 ML SYRINGE SC SCH (08:34)
[2019-12-05] MEDS: methylPREDNISolone Sod Succ 40 MG VIAL IVP SCH ×2 (08:34→20:30)
[2019-12-05] MEDS: Famotidine 20 MG TAB PO SCH ×2 (08:39→20:28)
[2019-12-05 12:13] LABS: LOG10 HIV-1 RNA 5.104 (.)
[2019-12-05] MEDS: Vancomycin 1.5 GRAM/300 ML BAG 1.5 GM in Premix Bag 1 BAG IVPB SCH (12:23)
[2019-12-05] MEDS: Azithromycin 500 MG in Sodium Chloride 0.9% 250 ML 250 ML IVPB SCH (16:37)
[2019-12-05 17:09] LABS: HIV 1 Antibody Multi-Spot Positive (Negative); HIV 2 Antibody Multi-Spot Indeterminate (Negative); HIV Multi-spot Interp HIV-1 Positive (.)
[2019-12-05] MEDS: cefTRIAXone\\ROCEPHIN 2 GM in Sodium Chloride 0.9% 100 ML IVPB SCH (18:30)
--- NOTE | 2019-12-05 18:54 | PRG ---
DATE OF SERVICE: 12/05/2019 SUBJECTIVE: The patient has been transferred to [facility]. He is awake, sitting, eating dinner, feeling better. OBJECTIVE: HEENT: Ocular movements conjugate. No sore throat. LUNGS: Still with rhonchi. Left-sided adventitious sounds. The right side has better aeration than before. HEART: S1 and S2. Regular rate without murmurs. ABDOMEN: Soft, not distended or tender. He is voiding in the urinal. LABORATORY DATA: White cell count 7.8, hemoglobin 10.3, platelets 413, 9% neutrophils. Chemistry with a creatinine 0.53, sodium 137. The CD4 cell count was only 2 and HIV PCR 127,000. He is on azithromycin, ceftriaxone, etravirine, enoxaparin, Epivir, Kaletra, Medrol, Bactrim 180 mg q.6, and vancomycin. At this point, we will discontinue azithromycin and vancomycin, and continue Rocephin, Bactrim, anti-retroviral medication, corticosteroids. Our goal will be to transition to oral medications including Bactrim and prednisone in the next few days. Continue anti-retroviral therapy as previously. Job ID: [id number]
[2019-12-05 22:09] LABS: CMV log 10 Quant 3.161 (.)
[2019-12-05 22:23] LABS: Vancomycin, Trough 9.5 ug/mL
[2019-12-06 03:43] LABS: #Basophils 0.1 thou/uL (0.0-0.2); #Lymphocytes 0.3 thou/uL (1.20-3.40); #Monocytes 0.3 thou/uL (0.11-0.59); #Neutrophils 8.3 thou/uL (1.40-6.50); %Basophils 0.6 % (0.0-1.0); %Eosinophils 0.3 % (0.0-10.0); %Lymphocytes 3.4 % (21.0-51.0); %Neutrophils 92.7 % (42.0-75.0); Hemoglobin 9.8 g/dL (14.0-18.0); Mean Corpuscular HGB CONC 33.3 g/dL (32.0-36.0); Mean Corpuscular Hemoglobin 27.8 pg (27.0-31.0); Mean Corpuscular Volume 83.4 fL (78.0-98.0); Mean Platelet Volume 7.7 fL (7.4-10.4); Platelet Count 446 thou/uL (130-400); RBC Distribution Width 12.4 % (11.5-14.5); Red Blood Cell (RBC) Count 3.53 mill/uL (4.70-6.10); White Blood Cell (WBC) Count 8.9 thou/uL (4.8-10.8)
[2019-12-06 04:04] LABS: Anion Gap 13 mmol/L (10-20); BUN (Urea Nitrogen) 9 mg/dL (8.4-25.7); Calc. Creatinine Clearance 118 mL/min (70-130); Calcium 7.7 mg/dL (7.8-10.44); Carbon Dioxide 23 mmol/L (22-29); Chloride 105 mmol/L (98-107); Estimated GFR-MDRD Greater than 90; Glucose 172 mg/dL (70-105); Potassium 3.2 mmol/L (3.5-5.1); Sodium 138 mmol/L (136-145)
[2019-12-06] MEDS: WATER IVPB SCH ×4 (06:33→23:36)
[2019-12-06] MEDS: DEXTROSE 5% IVPB SCH ×4 (06:33→23:36)
[2019-12-06] MEDS: TRIMETHOPRIM IVPB SCH ×4 (06:33→23:36)
[2019-12-06] MEDS: SULFAMETHOXAZOLE IVPB SCH ×4 (06:33→23:36)
--- NOTE | 2019-12-06 07:43 | RAD ---
XR Chest 1 View Portable History: Pneumonia Comparison: Radiograph prior day Findings: Improved aeration of the upper lobes. Trace effusions. No pneumothorax. Lower lobe as well as middle lobe/lingular opacities are relatively similar compared no acute osseous abnormality. Impression: Improved upper lobe aeration.
[2019-12-06] MEDS: ACYCLOVIR SODIUM IVPB SCH ×2 (08:53→15:55)
[2019-12-06] MEDS: SODIUM CHLORIDE 0.9% IVPB SCH ×2 (08:53→15:55)
[2019-12-06] MEDS: Famotidine 20 MG TAB PO SCH ×2 (08:59→21:02)
[2019-12-06] MEDS: Enoxaparin Sodium 40 MG/0.4 ML SYRINGE SC SCH (08:59)
[2019-12-06] MEDS: methylPREDNISolone Sod Succ 40 MG VIAL IVP SCH (09:00)
[2019-12-06] MEDS: Lopinavir/Ritonavir 200-50mg TAB PO SCH ×2 (09:01→21:02)
--- NOTE | 2019-12-06 09:37 | PRG ---
DATE OF SERVICE: 12/06/2019 SUBJECTIVE: He is resting comfortably on high-flow nasal cannula. Has no acute complaints. OBJECTIVE: VITAL SIGNS: His temperature is 98.2, pulse 85, blood pressure 124/73, his O2 saturation is 99% on the high-flow. HEENT: Unremarkable. NECK: No JVD. LUNGS: Coarse rhonchi bilaterally. CARDIAC: S1 and S2. Regular. ABDOMEN: Soft. EXTREMITIES: No edema. LABORATORY DATA: White blood cell count 8.9, hematocrit 29.4, platelet count 446. Sodium 138, potassium 3.2, chloride 105, CO2 of 23, BUN 9, creatinine 0.5, glucose 172. ASSESSMENT: 1. Acquired immunodeficiency syndrome. 2. Bilateral pneumonia, organism unclear. PLAN: 1. Continue broad-spectrum antivirals, antibiotics, and pneumocystis therapy. 2. Continuing steroids. 3. Wean high-flow oxygen as tolerated. Job ID: [id number]
--- NOTE | 2019-12-06 14:42 | PDOC.HOSPP ---
- Subjective Encounter Date: 12/06/19 Encounter Time: 13:00 Subjective: patient denies any fever chills nausea rash vomiting, refers he feels he is breathing better - Objective Vital Signs & Weight: Vital Signs (12 hours) Temp Pulse Ox 12/06/19 11:13 99.2 F 12/06/19 08:00 98 12/06/19 07:39 98.2 F 12/06/19 03:24 98.6 F Weight Admit Weight 109 lb 9.6 oz Weight 119 lb 4.8 oz Most Recent Monitor Data Heart Rate from ECG 97 NIBP 111/60 NIBP BP-Mean 77 Respiration from ECG 34 SpO2 100 I&O: 12/05/19 12/06/19 12/07/19 06:59 06:59 06:59 Intake Total 5796 2910 Output Total 4730 3220 Balance 2565 -310 Result Diagrams: 12/06/19 03:23 12/06/19 03:23 Hospitalist ROS - Review of Systems All other systems reviewed; all pertinent +/- noted in HPI/Subj - Medication Medications: Active Medications Generic Name Dose Route Start Last Admin Trade Name Freq PRN Reason Stop Dose Admin Acetaminophen 650 mg 12/01/19 21:10 12/03/19 19:40 Tylenol PO 650 mg Q4H PRN Administration Headache/Fever/Mild Pain (1-3) Enoxaparin Sodium 40 mg 12/02/19 09:00 12/06/19 08:59 Lovenox SC 40 mg 0900 COURTNEY Administration Etravirine 200 mg 12/03/19 18:00 12/06/19 08:59 Intelence PO 200 mg BID-PC COURTNEY Administration Famotidine 20 mg 12/02/19 09:00 12/06/19 08:59 Pepcid PO 20 mg BID COURTNEY Administration Ceftriaxone Sodium 2 gm/ 100 mls @ 200 mls/hr 12/02/19 16:00 12/05/19 18:30 Sodium Chloride IVPB 100 mls Q24HR COURTNEY Administration Acyclovir Sodium 300 mg/ 106 mls @ 100 mls/hr 12/03/19 16:00 12/06/19 08:53 Sodium Chloride IVPB 106 mls 0800,1600,2359 COURTNEY Administration Trimethoprim/Sulfamethoxazole 500 mls @ 250 mls/hr 12/03/19 18:00 12/06/19 12 :36 180 mg/ Dextrose/Water IVPB 500 mls Q6HR COURTNEY Administration Lamivudine 150 mg 12/03/19 21:00 12/06/19 08:59 Epivir PO 150 mg BID COURTNEY Administration Lopinavir/Ritonavir 1 tab 12/03/19 21:00 12/06/19 09:01 Kaletra PO 1 tab BID COURTNEY Administration Methylprednisolone Sodium Succinate 40 mg 12/03/19 21:00 12/06/19 09:00 Solu-Medrol IVP 40 mg Q12HR COURTNEY Administration Sodium Chloride 10 ml 12/01/19 21:00 12/06/19 08:54 Flush - Normal Saline IVF 10 ml Q12HR COURTNEY Administration - Exam General Appearance: awake alert Eye: PERRL, anicteric sclera ENT: normocephalic atraumatic, no oropharyngeal lesions Neck: supple, symmetric, no JVD Heart: RRR, no murmur, no gallops Respiratory: CTAB, no wheezes, no rales, no ronchi, normal chest expansion Gastrointestinal: soft, non-tender, non-distended, normal bowel sounds Extremities: no cyanosis, no clubbing Skin: normal turgor, no lesions Neurological: cranial nerve grossly intact, normal sensation to touch, no weakness Musculoskeletal: normal tone, normal strength Psychiatric: normal affect, normal behavior, A&O x 3, oriented to person Hosp A/P (1) Acute respiratory failure with hypoxia Code(s): J96.01 - ACUTE RESPIRATORY FAILURE WITH HYPOXIA Status: Acute (2) Pneumonia, bacterial Code(s): J15.9 - UNSPECIFIED BACTERIAL PNEUMONIA Status: Acute (3) Severe sepsis Code(s): A41.9 - SEPSIS, UNSPECIFIED ORGANISM; R65.20 - SEVERE SEPSIS WITHOUT SEPTIC SHOCK Status: Acute (4) AIDS Status: Chronic (5) Malnutrition of moderate degree Code(s): E44.0 - MODERATE PROTEIN-CALORIE MALNUTRITION Status: Chronic - Plan -ID consulted following recommendations - medical staffing coordinator consulted following recommendations - continue current abx for pneumonia and decreased cd4 count - continue respiratory support and steroids, still requiting high flow oxygen, weaning as tolerated - continue anti retroviral tx
[2019-12-06] MEDS ORDERED: Magnesium 2 GM/50 ML 2 GM in Premix Bag 1 BAG IVPB PRN (14:48)
[2019-12-06] MEDS ORDERED: Potassium Chloride 40 MEQ in Sodium Chloride 0.9% 250 ML 250 ML IVPB PRN (14:48)
[2019-12-06] MEDS ORDERED: Magnesium Oxide 400 MG TAB PO PRN ×2 (14:48)
[2019-12-06] MEDS ORDERED: Potassium Phosphate 15 MMOL in Sodium Chloride 0.9% 250 ML 250 ML IV PRN (14:48)
[2019-12-06] MEDS ORDERED: Potassium Chloride 20 MEQ TAB PO PRN (14:48)
[2019-12-06] MEDS ORDERED: Potassium Phosphate 12 MMOL in Sodium Chloride 0.9% 250 ML 250 ML IV PRN (14:48)
[2019-12-06] MEDS ORDERED: Potassium Phosphate 9 MMOL in Sodium Chloride 0.9% 100 ML IVPB PRN (14:48)
[2019-12-06] MEDS ORDERED: Potassium Chloride 40 MEQ in Premix Bag 1 BAG IVPB PRN (14:48)
[2019-12-06] MEDS ORDERED: PHOS-NAK 1 PKT PACK PO PRN ×2 (14:48)
[2019-12-06] MEDS ORDERED: CCU ELECTROLYTE REPLACEMENT PROTOCOL FS PRN (14:48)
[2019-12-06] MEDS: cefTRIAXone\\ROCEPHIN 2 GM in Sodium Chloride 0.9% 100 ML IVPB SCH (15:56)
--- NOTE | 2019-12-06 17:09 | PRG ---
DATE OF SERVICE: 12/06/2019 SUBJECTIVE: Mr. Martinse was bathing himself, and when I got in the room he is feeling better and still a little bit tachypneic, but does not cough as much. No headaches. No diarrhea. OBJECTIVE: VITAL SIGNS: T-max 99.2, blood pressure 120/70, and pulse 96. HEENT: Ocular movements conjugate. LUNGS: With a squeaky breath sounds at the bases with a few crackles and somewhat coarse breath sounds. HEART: S1 and S2. Regular rate. ABDOMEN: Soft, not distended. LABORATORY DATA: White cell count is 8.9, hemoglobin 9.8, and platelets 446. Creatinine 0.52. ASSESSMENT AND DISCUSSION: Human immunodeficiency virus infection with poor adherence to antiretroviral therapy and admission with community-acquired pneumonia, probably a combination of bacterial pneumonia with pneumocystis. Additional pathogens include cytomegalovirus. His HIV RNA PCR is 127,000 on admission. CD4 of 2. At this time, we will add Valcyte p.o. to regimen. Also, we will transition steroids to oral and transition acyclovir to oral as well. Job ID: [id number]
[2019-12-06] MEDS ORDERED: predniSONE 20 MG TAB PO SCH (17:15)
[2019-12-06] MEDS: valACYclovir 500 MG TAB PO SCH (21:02)
[2019-12-07 03:45] LABS: #Lymphocytes 0.4 thou/uL (1.20-3.40); #Monocytes 0.5 thou/uL (0.11-0.59); %Basophils 0.1 % (0.0-1.0); %Eosinophils 0.4 % (0.0-10.0); %Lymphocytes 3.6 % (21.0-51.0); %Monocytes 4.4 % (0.0-10.0); %Neutrophils 91.4 % (42.0-75.0); Mean Corpuscular HGB CONC 33.2 g/dL (32.0-36.0); Mean Corpuscular Hemoglobin 27.9 pg (27.0-31.0); Mean Corpuscular Volume 84.1 fL (78.0-98.0); Mean Platelet Volume 7.7 fL (7.4-10.4); Platelet Count 441 thou/uL (130-400); RBC Distribution Width 12.6 % (11.5-14.5); Red Blood Cell (RBC) Count 3.59 mill/uL (4.70-6.10); White Blood Cell (WBC) Count 10.9 thou/uL (4.8-10.8)
[2019-12-07 04:33] LABS: Anion Gap 10 mmol/L (10-20); BUN (Urea Nitrogen) 9 mg/dL (8.4-25.7); Calc. Creatinine Clearance 125 mL/min (70-130); Calcium 7.9 mg/dL (7.8-10.44); Carbon Dioxide 26 mmol/L (22-29); Chloride 104 mmol/L (98-107); Estimated GFR-MDRD Greater than 90; Glucose 215 mg/dL (70-105); Sodium 136 mmol/L (136-145)
[2019-12-07] MEDS: SULFAMETHOXAZOLE IVPB SCH ×4 (06:20→23:57)
[2019-12-07] MEDS: TRIMETHOPRIM IVPB SCH ×4 (06:20→23:57)
[2019-12-07] MEDS: DEXTROSE 5% IVPB SCH ×4 (06:20→23:57)
[2019-12-07] MEDS: WATER IVPB SCH ×4 (06:20→23:57)
--- NOTE | 2019-12-07 08:03 | RAD ---
CHEST 1 VIEW: INDICATION: History of pneumonia. COMPARISON: Prior exam dated 12/06/2019. FINDINGS: There are worsening bilateral perihilar airspace opacities with persistent consolidation of both lowe r lobes. Tiny bilateral pleural effusions. No pneumothorax is evident. Osseous structures are unch anged. Cardiomegaly and mild pulmonary vascular congestion persist. Osseous structures are unchange d. IMPRESSION: 1. Persistent bibasilar airspace opacities suspicious for pneumonia. 2. Worsening pulmonary vascular congestion, small pleural effusions and perihilar airspace opacities may reflect a component of congestive heart failure. No new pneumothorax is evident. POS: BH
--- NOTE | 2019-12-07 09:05 | PRG ---
DATE OF SERVICE: 12/07/2019 SUBJECTIVE: He remains on high-flow oxygen. No acute complaints. Overall, feeling better. OBJECTIVE: VITAL SIGNS: Temperature is 98, pulse 111, blood pressure 129/82, O2 saturation 100% on high-flow. HEENT: Unremarkable. NECK: No adenopathy or JVD. LUNGS: Inspiratory crackles bilaterally. CARDIAC: S1 and S2. Regular. ABDOMEN: Soft. EXTREMITIES: No edema. LABORATORY DATA: White blood cell count 10.9, hematocrit 30, and platelet count 441. Sodium 136, potassium 4, BUN 9, creatinine 0.5, glucose 215. ASSESSMENT: 1. Human immunodeficiency virus with bilateral pneumonia. Most likely Pneumocystis given low T-cell count. 2. Acute hypoxic respiratory failure. PLAN: 1. Wean oxygen as tolerated. 2. Continue steroids, antivirals, antibiotics, and Pneumocystis therapy. Job ID: [id number]
[2019-12-07] MEDS: predniSONE 20 MG TAB PO SCH (09:15)
[2019-12-07] MEDS: Famotidine 20 MG TAB PO SCH ×2 (09:15→20:08)
[2019-12-07] MEDS: valACYclovir 500 MG TAB PO SCH (09:17)
[2019-12-07] MEDS: Enoxaparin Sodium 40 MG/0.4 ML SYRINGE SC SCH (09:17)
[2019-12-07] MEDS: Lopinavir/Ritonavir 200-50mg TAB PO SCH ×2 (09:22→20:08)
--- NOTE | 2019-12-07 13:17 | PRG ---
DATE OF SERVICE: 12/07/2019 SUBJECTIVE: Stable and coughing, but less than before. No sputum production. No chest pain and no abdominal pain. No diarrhea. OBJECTIVE: VITAL SIGNS: T-max 99.2, blood pressure 120/80, pulse 111. O2 saturation 98% with high-flow O2, it has been decreased from 60 to 40 flow rate. GENERAL: Awake, alert, and oriented. LUNGS: Right lung with better aeration. The left side still with some crackling at the base. CARDIAC: S1 and S2, regular rate. ABDOMEN: Soft, not distended. No organomegaly. No bladder distention. NEUROLOGIC: Nonfocal. LABORATORY DATA: White cell count 10.9, hemoglobin 10, platelets 441, and 91% neutrophils creatinine 0.52. Sodium 138, and we have discussed the other results. The list of medications is quite extensive, including Rocephin, Intelence, Epivir, Kaletra, electrolytes, Bactrim, valganciclovir. We will go ahead and stop the Valtrex since he is going to be on valganciclovir, x-ray shows still bilateral pulmonary infiltrates and we will continue same therapy for now. Job ID: [id number] [facility]
--- NOTE | 2019-12-07 14:02 | PDOC.HOSPP ---
- Subjective Encounter Date: 12/07/19 Encounter Time: 13:00 Subjective: pt seen on f/u, denies fever chills malaise nause or vomiting. patient refers his respiration status is improving - Objective Vital Signs & Weight: Vital Signs (12 hours) Pulse Ox 12/07/19 11:25 98 12/07/19 07:37 98 Weight Admit Weight 109 lb 9.6 oz Weight 115 lb 1.6 oz Most Recent Monitor Data Heart Rate from ECG 111 NIBP 129/82 NIBP BP-Mean 97 Respiration from ECG 33 SpO2 87 I&O: 12/06/19 12/07/19 12/08/19 06:59 06:59 06:59 Intake Total 2910 4190 Output Total 3220 4126 Balance -310 64 Result Diagrams: 12/07/19 03:15 12/07/19 03:15 Hospitalist ROS - Review of Systems All other systems reviewed; all pertinent +/- noted in HPI/Subj - Medication Medications: Active Medications Generic Name Dose Route Start Last Admin Trade Name Freq PRN Reason Stop Dose Admin Acetaminophen 650 mg 12/01/19 21:10 12/03/19 19:40 Tylenol PO 650 mg Q4H PRN Administration Headache/Fever/Mild Pain (1-3) Enoxaparin Sodium 40 mg 12/02/19 09:00 12/07/19 09:17 Lovenox SC 40 mg 0900 COURTNEY Administration Etravirine 200 mg 12/03/19 18:00 12/07/19 09:17 Intelence PO 200 mg BID-PC COURTNEY Administration Famotidine 20 mg 12/02/19 09:00 12/07/19 09:15 Pepcid PO 20 mg BID COURTNEY Administration Ceftriaxone Sodium 2 gm/ 100 mls @ 200 mls/hr 12/02/19 16:00 12/06/19 15:56 Sodium Chloride IVPB 100 mls Q24HR COURTNEY Administration Trimethoprim/Sulfamethoxazole 500 mls @ 250 mls/hr 12/03/19 18:00 12/07/19 13 :00 180 mg/ Dextrose/Water IVPB 500 mls Q6HR COURTNEY Administration Lamivudine 150 mg 12/03/19 21:00 12/07/19 09:17 Epivir PO 150 mg BID COURTNEY Administration Lopinavir/Ritonavir 1 tab 12/03/19 21:00 12/07/19 09:22 Kaletra PO 1 tab BID COURTNEY Administration Potassium Chloride 40 meq 12/06/19 14:48 12/06/19 18:10 K-Dur PO 40 meq ASDIR PRN Administration FOR SERUM K+ 2.5 - 3.5 Prednisone 40 mg 12/07/19 09:00 12/07/19 09:15 Prednisone PO 40 mg DAILY COURTNEY Administration Sodium Chloride 10 ml 12/01/19 21:00 12/07/19 09:18 Flush - Normal Saline IVF 10 ml Q12HR COURTNEY Administration Valganciclovir 900 mg 12/06/19 21:00 12/07/19 09:17 Valcyte PO 900 mg BID COURTNEY Administration - Exam Eye: PERRL, anicteric sclera ENT: normocephalic atraumatic, no oropharyngeal lesions Neck: supple, symmetric, no JVD Heart: RRR, no murmur, no gallops, no rubs Respiratory: CTAB, no wheezes, no rales, no ronchi, normal chest expansion Gastrointestinal: soft, non-tender, non-distended, normal bowel sounds Neurological: cranial nerve grossly intact, normal sensation to touch, no focal deficits, no new deficit Psychiatric: normal affect, normal behavior, A&O x 3 Hosp A/P (1) Acute respiratory failure with hypoxia Code(s): J96.01 - ACUTE RESPIRATORY FAILURE WITH HYPOXIA Status: Acute (2) Pneumonia, bacterial Code(s): J15.9 - UNSPECIFIED BACTERIAL PNEUMONIA Status: Acute (3) Severe sepsis Code(s): A41.9 - SEPSIS, UNSPECIFIED ORGANISM; R65.20 - SEVERE SEPSIS WITHOUT SEPTIC SHOCK Status: Acute (4) AIDS Status: Chronic (5) Malnutrition of moderate degree Code(s): E44.0 - MODERATE PROTEIN-CALORIE MALNUTRITION Status: Chronic - Plan -ID consulted following recommendations - insurance claims examiner consulted following recommendations - continue current abx for pneumonia and decreased cd4 count - continue respiratory support and steroids, still requiting high flow oxygen, weaning as tolerated - continue anti retroviral tx
[2019-12-07] MEDS: cefTRIAXone\\ROCEPHIN 2 GM in Sodium Chloride 0.9% 100 ML IVPB SCH (17:02)
[2019-12-08 04:20] LABS: Anion Gap 11 mmol/L (10-20); BUN (Urea Nitrogen) 9 mg/dL (8.4-25.7); Calc. Creatinine Clearance 112 mL/min (70-130); Calcium 8.1 mg/dL (7.8-10.44); Carbon Dioxide 26 mmol/L (22-29); Chloride 104 mmol/L (98-107); Estimated GFR-MDRD Greater than 90; Glucose 101 mg/dL (70-105); Potassium 3.6 mmol/L (3.5-5.1); Sodium 137 mmol/L (136-145)
[2019-12-08 05:26] LABS: Band 4 % (5-11); Eosinophils 1 % (0-10); Hemoglobin 10.5 g/dL (14.0-18.0); Lymphocytes 11 % (21-51); MDiff Complete? YES; Mean Corpuscular HGB CONC 33.4 g/dL (32.0-36.0); Mean Corpuscular Volume 83.7 fL (78.0-98.0); Mean Platelet Volume 7.7 fL (7.4-10.4); Metamyelocyte 1 % (0-0); Monocytes 3 % (0-10); Neutrophil 80 % (42-75); Platelet Clumps SLIGHT; Platelet Count 440 thou/uL (130-400); Platelet Morphology Comment Appears Increased; RBC Morphology Normal; Red Blood Cell (RBC) Count 3.77 mill/uL (4.70-6.10); White Blood Cell (WBC) Count 12.1 thou/uL (4.8-10.8)
[2019-12-08] MEDS: DEXTROSE 5% IVPB SCH ×3 (06:24→18:25)
[2019-12-08] MEDS: WATER IVPB SCH ×3 (06:24→18:25)
[2019-12-08] MEDS: SULFAMETHOXAZOLE IVPB SCH ×3 (06:24→18:25)
[2019-12-08] MEDS: TRIMETHOPRIM IVPB SCH ×3 (06:24→18:25)
[2019-12-08] MEDS: predniSONE 20 MG TAB PO SCH (10:30)
[2019-12-08] MEDS: Lopinavir/Ritonavir 200-50mg TAB PO SCH ×2 (10:30→20:38)
[2019-12-08] MEDS: Famotidine 20 MG TAB PO SCH ×2 (10:30→20:37)
[2019-12-08] MEDS: Enoxaparin Sodium 40 MG/0.4 ML SYRINGE SC SCH (10:30)
[2019-12-08] MEDS ORDERED: Furosemide 20 MG/2 ML VIAL SLOW IVP SCH (14:15)
--- NOTE | 2019-12-08 14:45 | PRG ---
DATE OF SERVICE: 12/08/2019 SERVICE: Pulmonary Medicine. INTERVAL HISTORY: The patient is doing fine from a respiratory standpoint. He indicates he is breathing fine. He denies any current chest discomfort, nausea, vomiting, fevers, or chills. Otherwise, there has been no interval change to his condition. PHYSICAL EXAMINATION: VITAL SIGNS: Afebrile; pulse 114; blood pressure 112/72; respirations 39; and saturation 98%, currently on 40% FiO2 delivered via high-flow nasal cannula. GENERAL: The patient is awake and alert, in no apparent distress. LUNGS: Good air entry bilaterally with extensive crackling throughout bilateral lung jeong. HEART: Normal rate and regular. ABDOMEN: Soft, nontender, and nondistended. Bowel sounds are positive. MUSCULOSKELETAL: No cyanosis or clubbing. No pitting in the bilateral lower extremities. NEUROLOGIC: Grossly nonfocal. LABORATORY DATA: WBC 12.1, hemoglobin 10.5, and platelets 440,000. D-dimer 1.41. PH 7.46, pCO2 of 26. Basic metabolic profile is completely unremarkable except for a potassium of 3.6. Urinalysis is negative. CD4 count is 2. HIV is positive. Urine is growing Staph aureus, which is a pansensitive organism. Respiratory virus panel is positive for rhino virus, influenza A and B are unremarkable. Cryptococcal antigen is negative. IMAGING STUDIES: 1. Chest x-ray demonstrates bilateral perihilar alveolar infiltrates. 2. CT of the chest from presentation demonstrates ground-glass opacifications throughout bilateral lung jeong, in a dense infiltrate in the left lower lobe. Characteristically, lesions have yet to evolve. Left atrium, left ventricle, and right ventricle are all dilated. ASSESSMENT: 1. Acute hypoxic respiratory failure. 2. Community-acquired pneumonia. 3. Human immunodeficiency virus/acquired immunodeficiency syndrome. DISCUSSION/PLAN: We will continue antibiotics, steroids, and supportive care. Potassium will be replaced today. We will wean away oxygen as tolerated. Pulmonary/Critical Care will continue to follow along in this location. That being said, from my perspective, he is stable for transition to the medical unit. Job ID: [id number]
--- NOTE | 2019-12-08 15:06 | PRG ---
DATE OF SERVICE: 12/08/2019 SUBJECTIVE: Still with high-flow oxygen in the canula, awake, alert, and oriented, little cough. No dyspnea. No diarrhea. No abdominal pain. No chest pain. OBJECTIVE: VITAL SIGNS: T-max 99.4 and is now 98.7, blood pressure 110/70, heart rate 114, respiratory rate 35, and O2 saturation 99%. GENERAL: Awake, alert, and oriented. LUNGS: With a squeaking sound in the left base, a little bit of crackles there, but for the most part, the lung sounds are clear, no wheezing. HEART: S1 and S2. Regular rate. ABDOMEN: Soft. Not distended or tender. No bladder distention. NEUROLOGIC: Nonfocal. He appears to be oriented. Speech is normal. LABORATORY DATA: White cell count is at 12,000, hemoglobin 10.5, platelets 440. Creatinine 0.51. ASSESSMENT AND DISCUSSION: Longstanding HIV infection with erratic adherence to anti-retroviral therapy with advanced immunosuppression, CD4 is 2, and pneumonia likely due to both bacterial pathogens as well as pneumocystis. 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 He is currently on Rocephin and he has been on Rocephin now for the past 6 to 7. In addition to that, he is on anti-retroviral therapy, prednisone, still with IV Bactrim, oral valganciclovir with oral Valcyte. We will discontinue Rocephin and continue the remainder. Hopefully in the next 2 days, switch him to Bactrim and start preparing for discharge planning, but first, we will have to deescalate from the oxygen supplementation manageable in the outpatient setting or even potentially discontinue supplementation Job ID: [id number]
[2019-12-08] MEDS: Potassium Chloride 20 MEQ TAB PO SCH ×2 (15:09→17:59)
--- NOTE | 2019-12-08 20:24 | PDOC.HOSPP ---
- Subjective Encounter Date: 12/08/19 Encounter Time: 20:00 Subjective: The patient is doing better. He has dry cough but it is better. No SOB. No fever - Objective Vital Signs & Weight: Vital Signs (12 hours) Temp Pulse Ox 12/08/19 19:26 98.8 F 12/08/19 15:41 99 12/08/19 15:12 97.8 F 12/08/19 11:42 98.7 F Weight Admit Weight 109 lb 9.6 oz Weight 110 lb 9.6 oz Most Recent Monitor Data Heart Rate from ECG 114 NIBP 109/69 NIBP BP-Mean 82 Respiration from ECG 32 SpO2 100 I&O: 12/07/19 12/08/19 12/09/19 06:59 06:59 06:59 Intake Total 4190 3700 499 Output Total 4125 5780 4000 Balance 64 -2080 -3501 Result Diagrams: 12/08/19 03:29 12/08/19 03:29 Hospitalist ROS - Review of Systems Constitutional: denies: fever, chills Respiratory: reports: cough. denies: dry Cardiovascular: denies: chest pain - Medication Medications: Active Medications Generic Name Dose Route Start Last Admin Trade Name Freq PRN Reason Stop Dose Admin Acetaminophen 650 mg 12/01/19 21:10 12/03/19 19:40 Tylenol PO 650 mg Q4H PRN Administration Headache/Fever/Mild Pain (1-3) Enoxaparin Sodium 40 mg 12/02/19 09:00 12/08/19 10:30 Lovenox SC 40 mg 0900 COURTNEY Administration Etravirine 200 mg 12/03/19 18:00 12/08/19 17:59 Intelence PO 200 mg BID-PC COURTNEY Administration Famotidine 20 mg 12/02/19 09:00 12/08/19 10:30 Pepcid PO 20 mg BID COURTNEY Administration Trimethoprim/Sulfamethoxazole 500 mls @ 250 mls/hr 12/03/19 18:00 12/08/19 18 :25 180 mg/ Dextrose/Water IVPB 500 mls Q6HR COURTNEY Administration Lamivudine 150 mg 12/03/19 21:00 12/08/19 10:31 Epivir PO 150 mg BID COURTNEY Administration Lopinavir/Ritonavir 1 tab 12/03/19 21:00 12/08/19 10:30 Kaletra PO 1 tab BID COURTNEY Administration Potassium Chloride 40 meq 12/06/19 14:48 12/06/19 18:10 K-Dur PO 40 meq ASDIR PRN Administration FOR SERUM K+ 2.5 - 3.5 Prednisone 40 mg 12/07/19 09:00 12/08/19 10:30 Prednisone PO 40 mg DAILY COURTNEY Administration Sodium Chloride 10 ml 12/01/19 21:00 12/08/19 10:32 Flush - Normal Saline IVF 10 ml Q12HR COURTNEY Administration Valganciclovir 900 mg 12/06/19 21:00 12/08/19 10:31 Valcyte PO 900 mg BID COURTNEY Administration - Exam General Appearance: NAD, awake alert Eye: PERRL, anicteric sclera ENT: normocephalic atraumatic, no oropharyngeal lesions Neck: supple, no JVD Heart: RRR, no murmur, no gallops, no rubs Respiratory: CTAB, no wheezes, no rales, no ronchi Gastrointestinal: soft, non-tender, non-distended, normal bowel sounds Extremities: no cyanosis, no clubbing, no edema Skin: normal turgor, no lesions, no rashes Hosp A/P - Plan ECHO: EF 60-65% This is a 54 year old male with HIGV who presented to the hospital with cough/ congestion and night sweats while in [place] Acute hypoxic respiratory failure secondary to sepsis from pneumonia Acute pulmonary edema - WBC Up to 12 - s/p ceftriaxone for 7 days, was discontinued - lasix 20 mg IV daily - continue IV bactrim HIV - continue HIV meds HSV anal area - continue valganciclovir Anemia - Hb 10.5, stable Code status: full code
[2019-12-09] MEDS: WATER IVPB SCH ×4 (01:54→17:34)
[2019-12-09] MEDS: SULFAMETHOXAZOLE IVPB SCH ×4 (01:54→17:34)
[2019-12-09] MEDS: TRIMETHOPRIM IVPB SCH ×4 (01:54→17:34)
[2019-12-09] MEDS: DEXTROSE 5% IVPB SCH ×4 (01:54→17:34)
[2019-12-09 03:57] LABS: #Eosinphils 0.1 thou/uL (0.0-0.7); #Lymphocytes 0.6 thou/uL (1.20-3.40); #Monocytes 0.2 thou/uL (0.11-0.59); #Neutrophils 5.2 thou/uL (1.40-6.50); %Basophils 0.2 % (0.0-1.0); %Eosinophils 1.2 % (0.0-10.0); %Lymphocytes 10.6 % (21.0-51.0); %Monocytes 2.6 % (0.0-10.0); %Neutrophils 85.4 % (42.0-75.0); Hemoglobin 11.3 g/dL (14.0-18.0); Mean Corpuscular HGB CONC 33.8 g/dL (32.0-36.0); Mean Corpuscular Hemoglobin 28.4 pg (27.0-31.0); Mean Corpuscular Volume 84.2 fL (78.0-98.0); Mean Platelet Volume 7.5 fL (7.4-10.4); Platelet Count 438 thou/uL (130-400); RBC Distribution Width 13.8 % (11.5-14.5); Red Blood Cell (RBC) Count 3.98 mill/uL (4.70-6.10)
[2019-12-09 04:15] LABS: Phosphorus 3.8 mg/dL (2.3-4.7)
[2019-12-09 04:16] LABS: Anion Gap 11 mmol/L (10-20); BUN (Urea Nitrogen) 9 mg/dL (8.4-25.7); Calc. Creatinine Clearance 106 mL/min (70-130); Calcium 8.4 mg/dL (7.8-10.44); Carbon Dioxide 25 mmol/L (22-29); Chloride 100 mmol/L (98-107); Estimated GFR-MDRD Greater than 90; Glucose 175 mg/dL (70-105); Magnesium 2.5 mg/dL (1.6-2.6); Potassium 4.2 mmol/L (3.5-5.1); Sodium 132 mmol/L (136-145)
[2019-12-09] MEDS ORDERED: Furosemide 20 MG/2 ML VIAL SLOW IVP SCH (09:00)
[2019-12-09] MEDS: Enoxaparin Sodium 40 MG/0.4 ML SYRINGE SC SCH (09:54)
[2019-12-09] MEDS: predniSONE 20 MG TAB PO SCH (09:54)
[2019-12-09] MEDS: Lopinavir/Ritonavir 200-50mg TAB PO SCH ×2 (09:55→21:02)
[2019-12-09] MEDS: Famotidine 20 MG TAB PO SCH ×2 (09:55→21:02)
--- NOTE | 2019-12-09 10:47 | RAD ---
Portable chest: HISTORY: Follow-up pulmonary edema COMPARISON: 12/07/2019 FINDINGS:Hazy bilateral infiltrates remain however the the infiltrates have improved from yesterday i ndicating improvement in the bilateral edema. IMPRESSION:Improvement in the bilateral pulmonary edema.
--- NOTE | 2019-12-09 14:51 | PDOC.HOSPP ---
- Subjective Encounter Date: 12/09/19 Encounter Time: 14:49 Subjective: The patient has improved cough. He says his shortness of breath is better. He has no chest pain. Patient had diuresed about 3L yesterday. - Objective Vital Signs & Weight: Vital Signs (12 hours) Temp Pulse Ox 12/09/19 11:05 99.6 F 12/09/19 07:26 100 12/09/19 07:18 98.9 F 12/09/19 03:41 98.6 F Weight Admit Weight 109 lb 9.6 oz Weight 102 lb Most Recent Monitor Data Heart Rate from ECG 106 NIBP 104/59 NIBP BP-Mean 74 Respiration from ECG 28 SpO2 100 I&O: 12/08/19 12/09/19 12/10/19 06:59 06:59 06:59 Intake Total 3700 2467 490 Output Total 5780 7250 600 Balance -2080 -4783 -110 Result Diagrams: 12/09/19 03:21 12/09/19 03:21 Hospitalist ROS - Review of Systems Constitutional: denies: fever, chills - Medication Medications: Active Medications Generic Name Dose Route Start Last Admin Trade Name Freq PRN Reason Stop Dose Admin Acetaminophen 650 mg 12/01/19 21:10 12/03/19 19:40 Tylenol PO 650 mg Q4H PRN Administration Headache/Fever/Mild Pain (1-3) Enoxaparin Sodium 40 mg 12/02/19 09:00 12/09/19 09:54 Lovenox SC 40 mg 0900 COURTNEY Administration Etravirine 200 mg 12/03/19 18:00 12/09/19 09:54 Intelence PO 200 mg BID-PC COURTNEY Administration Famotidine 20 mg 12/02/19 09:00 12/09/19 09:55 Pepcid PO 20 mg BID COURTNEY Administration Trimethoprim/Sulfamethoxazole 500 mls @ 250 mls/hr 12/03/19 18:00 12/09/19 12 :20 180 mg/ Dextrose/Water IVPB 500 mls Q6HR COURTNEY Administration Lamivudine 150 mg 12/03/19 21:00 12/09/19 09:55 Epivir PO 150 mg BID COURTNEY Administration Lopinavir/Ritonavir 1 tab 12/03/19 21:00 12/09/19 09:55 Kaletra PO 1 tab BID COURTNEY Administration Potassium Chloride 40 meq 12/06/19 14:48 12/06/19 18:10 K-Dur PO 40 meq ASDIR PRN Administration FOR SERUM K+ 2.5 - 3.5 Prednisone 40 mg 12/07/19 09:00 12/09/19 09:54 Prednisone PO 40 mg DAILY COURTNEY Administration Sodium Chloride 10 ml 12/01/19 21:00 12/09/19 09:56 Flush - Normal Saline IVF 10 ml Q12HR COURTNEY Administration Valganciclovir 900 mg 12/06/19 21:00 12/09/19 09:56 Valcyte PO 900 mg BID COURTNEY Administration - Exam General Appearance: NAD, awake alert Eye: PERRL, anicteric sclera ENT: normocephalic atraumatic, no oropharyngeal lesions Neck: supple, symmetric, no JVD Heart: RRR, no murmur, no gallops, no rubs Respiratory: CTAB, no wheezes, no ronchi Respiratory - other findings: mild rales at bases on the back. On high flow nasal cannula Gastrointestinal: soft, non-tender, non-distended, normal bowel sounds Extremities: no cyanosis, no clubbing, no edema Skin: normal turgor, no lesions, no rashes Hosp A/P - Plan ECHO: EF 60-65% Chest Xray 12/08: improvement in pulmonary edema This is a 54 year old male with HIGV who presented to the hospital with cough/ congestion and night sweats while in [place] Acute hypoxic respiratory failure secondary to sepsis from pneumonia Acute pulmonary edema - WBC Up to 12 - s/p ceftriaxone for 7 days, was discontinued - lasix 20 mg IV daily. REpeat chest Xray shows improvement in pulmonray edema - continue IV bactrim HIV - continue HIV meds HSV anal area - continue valganciclovir Anemia - Hb 10.5, stable Code status: full code
--- NOTE | 2019-12-09 18:53 | PRG ---
DATE OF SERVICE: 12/09/2019 SERVICE: Pulmonary Medicine. INTERVAL HISTORY: The patient is doing really well from respiratory standpoint. Breathing comfortably. With a dose of Lasix yesterday, saturations have improved significantly. He denies overnight events. There has been no chest discomfort, nausea, or vomiting. He is not coughing up any phlegm. PHYSICAL EXAMINATION: VITAL SIGNS: Afebrile, pulse 111, blood pressure 97/51, respirations 26, and saturation 95% on room air today. HEENT: Normocephalic and atraumatic. Sclerae white. Conjunctivae pink. Oral mucosa is moist without lesions. LUNGS: Good air entry bilaterally. No prolonged expiratory phase or wheezing is appreciated. HEART: Normal rate and regular. ABDOMEN: Soft, nontender, and nondistended. Bowel sounds are positive. MUSCULOSKELETAL: No cyanosis or clubbing. There is no pitting edema. NEUROLOGIC: Grossly nonfocal. LABORATORY DATA: WBC 6.0, hemoglobin 11.3, platelets 438,000. Basic metabolic profile is completely unremarkable otherwise. His magnesium is 2.5 and phosphorus 3.8. Staph aureus is growing in the urine. Influenza A and B, cryptococcus, respiratory virus panel, blood cultures x2 are negative. IMAGING: Chest x-ray demonstrates improvement in the bilateral pulmonary edema. ASSESSMENT: 1. Acute hypoxic respiratory failure, resolving. 2. Community-acquired pneumonia. 3. Human immunodeficiency virus/acquired immunodeficiency syndrome. DISCUSSION AND PLAN: The patient is doing fine from respiratory standpoint today. We will need to watch his in's and out's very closely as he is getting a very profound amount of fluid with the antibiotics. Critical Care will continue to follow while the patient remains in this location. Dr. Dalton will resume care in the morning. Job ID: [id number]
[2019-12-10] MEDS: WATER IVPB SCH ×2 (00:56→05:30)
[2019-12-10] MEDS: TRIMETHOPRIM IVPB SCH ×2 (00:56→05:30)
[2019-12-10] MEDS: SULFAMETHOXAZOLE IVPB SCH ×2 (00:56→05:30)
[2019-12-10] MEDS: DEXTROSE 5% IVPB SCH ×2 (00:56→05:30)
[2019-12-10 03:55] LABS: #Eosinphils 0.1 thou/uL (0.0-0.7); #Lymphocytes 0.5 thou/uL (1.20-3.40); #Monocytes 0.2 thou/uL (0.11-0.59); #Neutrophils 5.8 thou/uL (1.40-6.50); %Basophils 0.4 % (0.0-1.0); %Eosinophils 1.1 % (0.0-10.0); %Lymphocytes 7.2 % (21.0-51.0); %Monocytes 2.9 % (0.0-10.0); %Neutrophils 88.4 % (42.0-75.0); Mean Corpuscular Hemoglobin 28.4 pg (27.0-31.0); Mean Corpuscular Volume 83.4 fL (78.0-98.0); Mean Platelet Volume 7.6 fL (7.4-10.4); Platelet Count 460 thou/uL (130-400); Red Blood Cell (RBC) Count 4.24 mill/uL (4.70-6.10); White Blood Cell (WBC) Count 6.6 thou/uL (4.8-10.8)
[2019-12-10 04:20] LABS: Phosphorus 3.4 mg/dL (2.3-4.7)
[2019-12-10 04:27] LABS: Anion Gap 14 mmol/L (10-20); BUN (Urea Nitrogen) 14 mg/dL (8.4-25.7); Calc. Creatinine Clearance 88 mL/min (70-130); Calcium 8.5 mg/dL (7.8-10.44); Carbon Dioxide 23 mmol/L (22-29); Chloride 97 mmol/L (98-107); Estimated GFR-MDRD Greater than 90; Glucose 182 mg/dL (70-105); Magnesium 2.3 mg/dL (1.6-2.6); Potassium 4.3 mmol/L (3.5-5.1); Sodium 130 mmol/L (136-145)
--- NOTE | 2019-12-10 07:53 | RAD ---
CHEST 1 VIEW: INDICATION: Followup pulmonary edema. COMPARISON: Prior exam dated 12/09/2019. FINDINGS: There is progressive improvement in the bilateral infrahilar interstitial and airspace opacities. He art size is normal. Tiny bilateral pleural effusions persist. No pneumothorax is evident. No acute osseous abnormality is evident. IMPRESSION: Improving bilateral perihilar opacities may reflect improving airspace edema or pneumonia. POS: BH
--- NOTE | 2019-12-10 08:00 | PRG ---
DATE OF SERVICE: 12/10/2019 SUBJECTIVE: The patient is doing quite well. Has no complaints. OBJECTIVE: VITAL SIGNS: His temperature is 99.2, O2 saturation 100% on 30% oxygen via high-flow, pulse 80, and blood pressure 103/66. HEENT: Unremarkable. NECK: No adenopathy or JVD. LUNGS: Clear anteriorly. CARDIAC: S1 and S2. Regular. ABDOMEN: Soft. EXTREMITIES: No edema. LABORATORY DATA: White blood cell count 6.6, hematocrit 35.3, and platelet count 460. Sodium 130, potassium 4.3, chloride 97, CO2 of 23, BUN 14, creatinine 0.6, and glucose 182. ASSESSMENT: 1. Acute respiratory failure, requiring high-flow oxygen. 2. Human immunodeficiency virus with pneumonia, probable Pneumocystis. 3. Developing hyponatremia. PLAN: 1. This patient can be safely transferred out to the medical floor. We will try to wean his high-flow oxygen off. 2. Initiate physical therapy. Job ID: [id number]
[2019-12-10] MEDS ORDERED: Furosemide 20 MG/2 ML VIAL SLOW IVP SCH (09:00)
[2019-12-10] MEDS: Lopinavir/Ritonavir 200-50mg TAB PO SCH ×2 (09:11→20:44)
[2019-12-10] MEDS: predniSONE 20 MG TAB PO SCH (09:11)
[2019-12-10] MEDS: Enoxaparin Sodium 40 MG/0.4 ML SYRINGE SC SCH (09:11)
[2019-12-10] MEDS: Famotidine 20 MG TAB PO SCH ×2 (09:11→20:44)
--- NOTE | 2019-12-10 10:37 | PRG ---
DATE OF SERVICE: 12/10/2019 SUBJECTIVE: Feels even better. No cough. No diarrhea. No vomiting. Eating well. Still with high-flow oxygen. OBJECTIVE: VITAL SIGNS: T-max 99.7, blood pressure 117/73, O2 saturation 100%. GENERAL: Awake, alert, oriented. LUNGS: With improvement and previously noted adventitious sounds with fairly clear breath sounds. HEART: S1 and S2. Regular rate. ABDOMEN: Soft, not distended. NEUROLOGIC: Nonfocal. LABORATORY DATA: White cell count is 6.6, hemoglobin 12, platelets 460, 88% neutrophils. Creatinine 0.62. ASSESSMENT AND DISCUSSION: Advanced immunosuppression secondary to human immunodeficiency virus infection with poor adherence to antiretroviral therapy. Pneumocystis pneumonia plus superimposed bacterial pneumonia. We will switch him to oral Bactrim. Continue remainder of this treatment. Hopefully be able to transition to normal nasal cannula supplementation a few more days before discharge planning. Job ID: [id number]
[2019-12-10] MEDS: Sulfameth/Trimethoprim DS 800-160mg TAB PO SCH ×3 (13:12→20:44)
--- NOTE | 2019-12-10 18:44 | PDOC.HOSPP ---
- Subjective Encounter Date: 12/10/19 Encounter Time: 19:45 non-verbal Subjective: Patient is doing better. He denies significant cough. He was weaned down to 3L nasal cannula . He did exercises with PT in the bed today. - Objective Vital Signs & Weight: Vital Signs (12 hours) Temp Pulse Pulse Pulse Resp BP BP 12/10/19 16:05 12/10/19 16:04 97.3 F L 102 H 20 12/10/19 15:25 98.4 F 12/10/19 14:43 102 H 103 H 119/74 109/71 12/10/19 11:30 98.3 F 12/10/19 07:22 12/10/19 07:08 99.2 F BP Pulse Ox Pulse Ox Pulse Ox 12/10/19 16:05 97 12/10/19 16:04 98/64 97 12/10/19 15:25 12/10/19 14:43 99 99 12/10/19 11:30 12/10/19 07:22 100 12/10/19 07:08 Weight Admit Weight 109 lb 9.6 oz Weight 101 lb Most Recent Monitor Data Heart Rate from ECG 97 NIBP 111/74 NIBP BP-Mean 86 Respiration from ECG 30 SpO2 100 I&O: 12/09/19 12/10/19 12/11/19 06:59 06:59 06:59 Intake Total 2467 4512 480 Output Total 7250 4650 Balance -4783 -138 480 Result Diagrams: 12/10/19 03:20 12/10/19 03:20 Hospitalist ROS - Review of Systems Constitutional: denies: fever, chills ENT: denies: ear pain, ear discharge - Medication Medications: Active Medications Generic Name Dose Route Start Last Admin Trade Name Freq PRN Reason Stop Dose Admin Acetaminophen 650 mg 12/01/19 21:10 12/03/19 19:40 Tylenol PO 650 mg Q4H PRN Administration Headache/Fever/Mild Pain (1-3) Enoxaparin Sodium 40 mg 12/02/19 09:00 12/10/19 09:11 Lovenox SC 40 mg 0900 COURTNEY Administration Etravirine 200 mg 12/03/19 18:00 12/10/19 17:39 Intelence PO 200 mg BID-PC COURTNEY Administration Famotidine 20 mg 12/02/19 09:00 12/10/19 09:11 Pepcid PO 20 mg BID COURTNEY Administration Furosemide 20 mg 12/10/19 09:00 12/10/19 09:11 Lasix SLOW IVP 20 mg DAILY COURTNEY Administration Lamivudine 150 mg 12/03/19 21:00 12/10/19 09:12 Epivir PO 150 mg BID COURTNEY Administration Lopinavir/Ritonavir 1 tab 12/03/19 21:00 12/10/19 09:11 Kaletra PO 1 tab BID COURTNEY Administration Potassium Chloride 40 meq 12/06/19 14:48 12/06/19 18:10 K-Dur PO 40 meq ASDIR PRN Administration FOR SERUM K+ 2.5 - 3.5 Sodium Chloride 10 ml 12/01/19 21:00 12/10/19 09:13 Flush - Normal Saline IVF 10 ml Q12HR COURTNEY Administration Trimethoprim/Sulfamethoxazole 1 tab 12/10/19 13:00 12/10/19 17:39 Bactrim Ds PO 1 tab QID COURTNEY Administration Valganciclovir 900 mg 12/06/19 21:00 12/10/19 09:12 Valcyte PO 900 mg BID COURTNEY Administration - Exam General Appearance: NAD, awake alert Eye: PERRL, anicteric sclera ENT: normocephalic atraumatic, no oropharyngeal lesions Neck: no JVD Heart: RRR, no murmur, no gallops, no rubs Respiratory: CTAB, no wheezes, no rales Gastrointestinal: soft, non-tender, non-distended Extremities: no cyanosis, no clubbing, no edema Hosp A/P - Plan ECHO: EF 60-65% Chest Xray 12/08: improvement in pulmonary edema This is a 54 year old male with HIGV who presented to the hospital with cough/ congestion and night sweats while in [place] Acute hypoxic respiratory failure secondary to sepsis from pneumonia Acute pulmonary edema - WBC normal - s/p ceftriaxone for 7 days, was discontinued . On bactrim for PCP, switched to oral today per ID - lasix 20 mg IV daily. REpeat chest Xray 12/09 shows improvement in pulmonray edema HIV - continue HIV meds HSV anal area - continue valganciclovir Anemia - Hb 12, stable Code status: full code
[2019-12-11 06:13] LABS: Anion Gap 12 mmol/L (10-20); BUN (Urea Nitrogen) 18 mg/dL (8.4-25.7); Calc. Creatinine Clearance 90 mL/min (70-130); Carbon Dioxide 24 mmol/L (22-29); Chloride 101 mmol/L (98-107); Estimated GFR-MDRD Greater than 90; Glucose 101 mg/dL (70-105); Potassium 4.5 mmol/L (3.5-5.1); Sodium 132 mmol/L (136-145)
[2019-12-11] MEDS: Sulfameth/Trimethoprim DS 800-160mg TAB PO SCH ×4 (08:27→20:34)
[2019-12-11] MEDS: Lopinavir/Ritonavir 200-50mg TAB PO SCH ×2 (08:27→20:34)
[2019-12-11] MEDS: predniSONE 20 MG TAB PO SCH (08:27)
[2019-12-11] MEDS: Famotidine 20 MG TAB PO SCH ×2 (08:27→20:34)
[2019-12-11] MEDS: Enoxaparin Sodium 40 MG/0.4 ML SYRINGE SC SCH (08:28)
--- NOTE | 2019-12-11 11:27 | PRG ---
DATE OF SERVICE: 12/11/2019 SUBJECTIVE: He is up in a chair. He is on 2 L nasal cannula. He overall looks much better. OBJECTIVE: VITAL SIGNS: Temperature is 97, O2 saturation 96% on 2 L, pulse 110, blood pressure 100/70. HEENT: Unremarkable. NECK: No JVD. LUNGS: Clear anteriorly. CARDIAC: S1 and S2, regular. ABDOMEN: Soft. EXTREMITIES: No edema. LABORATORY DATA: Sodium 132, BUN 18, creatinine 0.6. Glucose 101. ASSESSMENT: 1. Human immunodeficiency virus with low CD4 count. 2. Bilateral pneumonia, likely Pneumocystis. PLAN: The patient continues to respond to current therapy. He is probably ready for discharge, but may need home oxygen. Dr. Pan is managing the antibiotics and steroids. Pulmonary will be available for further assistance as needed. Job ID: [id number]
--- NOTE | 2019-12-11 13:14 | PRG ---
DATE OF SERVICE: 12/11/2019 SUBJECTIVE: Feeling better. He has been downgraded to a lesser O2 supplementation scheme. Denies any cough. No chest pain. No abdominal pain or diarrhea. OBJECTIVE: VITAL SIGNS: He is afebrile, BP 97/66, O2 saturation 98% on 2 L. GENERAL: Awake, alert, oriented. LUNGS: With much improved breath sounds. HEART: S1-S2 regular rate. ABDOMEN: Soft, not distended or tender. EXTREMITIES: Moves extremities equally. LABORATORY DATA: White cell count 6.6, hemoglobin 12, platelets 460. Sodium 132, creatinine 0.6. ASSESSMENT AND DISCUSSION: HIV seropositive status, advanced immunosuppression associated with erratic adherence to anti-retroviral therapy, pneumocystis pneumonia, superimposed bacterial pneumonia, CMV viremia, marked improvement. The patient is on all an entirely oral medication program, probably be able to discontinue prednisone next couple of days, hopefully discharge planning on oral Bactrim to complete 21 days and Valcyte or valganciclovir to complete two weeks of the 900 mg b.i.d. dose and then 450 b.i.d. for another 4 weeks or so. Upon discharge, he should be starting an anti-retroviral program in the outpatient setting and we will provide him with samples of the medication Biktarvy which I have samples in the office. He should stop by my office and I will provide him the samples and probably at least one month's worth of medication to carry him through until the state program is approved for him. Job ID: [id number]
[2019-12-11 14:14] VITALS: BMI 17.9
--- NOTE | 2019-12-11 16:28 | PDOC.HOSPP ---
- Subjective Encounter Date: 12/11/19 Encounter Time: 16:26 Subjective: The patient is doing better. No cough or shortness of breath. He was weaned down to 2L this morning. He is now on room air to assess room air saturation. He prefers to go tomorrow - Objective Vital Signs & Weight: Vital Signs (12 hours) Temp Pulse Resp BP Pulse Ox 12/11/19 15:24 98.1 F 108 H 19 91/52 L 97 12/11/19 09:00 98.1 F 104 H 18 97/66 98 12/11/19 08:00 96 12/11/19 07:27 98.1 F 110 H 17 100/70 96 12/11/19 07:08 99 12/11/19 04:45 100/61 12/11/19 04:37 97.9 F 89 18 94/65 97 Weight Admit Weight 109 lb 9.6 oz Weight 101 lb Most Recent Monitor Data Heart Rate from ECG 97 NIBP 111/74 NIBP BP-Mean 86 Respiration from ECG 30 SpO2 100 I&O: 12/10/19 12/11/19 12/12/19 06:59 06:59 06:59 Intake Total 4512 480 Output Total 4650 820 Balance -138 -340 Result Diagrams: 12/10/19 03:20 12/11/19 05:25 Hospitalist ROS - Review of Systems Constitutional: denies: fever, chills ENT: denies: ear discharge, mouth pain - Medication Medications: Active Medications Generic Name Dose Route Start Last Admin Trade Name Freq PRN Reason Stop Dose Admin Acetaminophen 650 mg 12/01/19 21:10 12/03/19 19:40 Tylenol PO 650 mg Q4H PRN Administration Headache/Fever/Mild Pain (1-3) Enoxaparin Sodium 40 mg 12/02/19 09:00 12/11/19 08:28 Lovenox SC 40 mg 0900 COURTNEY Administration Etravirine 200 mg 12/03/19 18:00 12/11/19 08:28 Intelence PO 200 mg BID-PC COURTNEY Administration Famotidine 20 mg 12/02/19 09:00 12/11/19 08:27 Pepcid PO 20 mg BID COURTNEY Administration Lamivudine 150 mg 12/03/19 21:00 12/11/19 08:28 Epivir PO 150 mg BID COURTNEY Administration Lopinavir/Ritonavir 1 tab 12/03/19 21:00 12/11/19 08:27 Kaletra PO 1 tab BID COURTNEY Administration Potassium Chloride 40 meq 12/06/19 14:48 12/06/19 18:10 K-Dur PO 40 meq ASDIR PRN Administration FOR SERUM K+ 2.5 - 3.5 Prednisone 20 mg 12/10/19 10:00 12/11/19 08:27 Prednisone PO 20 mg DAILY COURTNEY Administration Sodium Chloride 10 ml 12/01/19 21:00 12/11/19 08:29 Flush - Normal Saline IVF 10 ml Q12HR COURTNEY Administration Trimethoprim/Sulfamethoxazole 1 tab 12/10/19 13:00 12/11/19 15:33 Bactrim Ds PO 1 tab QID COURTNEY Administration Valganciclovir 900 mg 12/06/19 21:00 12/11/19 08:28 Valcyte PO 900 mg BID COURTNEY Administration - Exam General Appearance: NAD, awake alert Eye: PERRL, anicteric sclera ENT: normocephalic atraumatic, no oropharyngeal lesions Neck: supple, no JVD Heart: RRR, no murmur, no gallops, no rubs Respiratory: CTAB, no wheezes, no rales, no ronchi Gastrointestinal: soft, non-tender, non-distended, normal bowel sounds Extremities: no cyanosis, no clubbing, no edema Skin: normal turgor, no lesions, no rashes Neurological: cranial nerve grossly intact, normal sensation to touch, no focal deficits, no new deficit Hosp A/P - Plan ECHO: EF 60-65% Chest Xray 12/08: improvement in pulmonary edema This is a 54 year old male with HIGV who presented to the hospital with cough/ congestion and night sweats while in [place] Acute hypoxic respiratory failure secondary to sepsis from pneumonia Acute pulmonary edema - WBC normal - s/p ceftriaxone for 7 days, was discontinued . On bactrim for PCP, switched to oral 12/10. Needs 21 days total - lasix 20 mg IV daily. REpeat chest Xray 3 shows improvement in pulmonray edema HIV - continue HIV meds HSV anal area - continue valganciclovir 900 mg bid for two weeks total and then 450 bid for another 4 weeks Anemia - Hb 12, stable Code status: full code
[2019-12-12 06:48] LABS: Anion Gap 11 mmol/L (10-20); BUN (Urea Nitrogen) 17 mg/dL (8.4-25.7); Calc. Creatinine Clearance 85 mL/min (70-130); Calcium 8.9 mg/dL (7.8-10.44); Carbon Dioxide 25 mmol/L (22-29); Chloride 100 mmol/L (98-107); Estimated GFR-MDRD Greater than 90; Glucose 90 mg/dL (70-105); Potassium 4.3 mmol/L (3.5-5.1); Sodium 132 mmol/L (136-145)
--- NOTE | 2019-12-12 08:02 | RAD ---
PORTABLE CHEST 1 VIEW: Date: 12/12/2019 Time: 0422 hours HISTORY: Pulmonary edema follow-up. COMPARISON: 12/10/2019. FINDINGS/IMPRESSION: Interval worsening of air space opacities are seen in the right lung. Mild patchy opacities in the le ft infrahilar region are again seen. No pneumothoraces or large effusions are identified. POS: [facility]
[2019-12-12] MEDS: Lopinavir/Ritonavir 200-50mg TAB PO SCH (10:02)
[2019-12-12] MEDS: predniSONE 20 MG TAB PO SCH (10:03)
[2019-12-12] MEDS: Famotidine 20 MG TAB PO SCH (10:03)
[2019-12-12] MEDS: Sulfameth/Trimethoprim DS 800-160mg TAB PO SCH ×2 (10:04→12:22)
[2019-12-12] MEDS: Enoxaparin Sodium 40 MG/0.4 ML SYRINGE SC SCH (10:04)
[2019-12-12 16:08] VITALS: BP 127/82; TEMP 97.9
== END 2019-12-12 16:46 | disposition home or self-care (01) | DRG 974 ==
LOC: ERS 15:39 → CCU 20:48 → IMCU/EMU 12-05 18:52 → T4-B 12-10 15:20
PROVIDERS: ADMIT Internal Medicine; ATTEND Internal Medicine
PROC: 3E033XZ Introduction of Vasopressor into Peripheral Vein, Percutaneous Approach (ICD-10-PCS; principal; 2019-12-01)
DX: A41.89 Other specified sepsis (principal); J96.01 Acute respiratory failure with hypoxia; B20 Human immunodeficiency virus [HIV] disease; J15.9 Unspecified bacterial pneumonia; B59 Pneumocystosis; Z68.1 Body mass index [BMI] 19.9 or less, adult; E44.0 Moderate protein-calorie malnutrition; E87.1 Hypo-osmolality and hyponatremia; B25.8 Other cytomegaloviral diseases; A60.1 Herpesviral infection of perianal skin and rectum; R65.20 Severe sepsis without septic shock; D64.9 Anemia, unspecified; Z91.14 Patient's other noncompliance with medication regimen
CPT/HCPCS: 36415; 36416; 36556; 71045; 71275; 80048; 80053; 80202; 81003; 81015; 82330; 82803; 83605; 83690; 83735; 83880; 84100; 84484; 85025; 85048; 85379; 86361; 86701; 86702; 87040; 87077; 87086; 87186; 87389; 87449; 87497; 87536; 87633; 87798; 87804; 87899; 93005; 93306; 96361; 96365; 96366; 96367; 99292; J0133; J0456; J0696; J1650; J1940; J2920; J3370; J3490; J7050; J7070; J7512; J8499; Q9967